=== PATIENT | male | born 1935 | race Caucasian/White ===

== ENCOUNTER 2016-10-31 10:08 | Inpatient (IN) | payer OTHER, MEDICAID ==
[2016-10-31] MEDS ORDERED: NS 1,000 ML IV ONE ×2 (10:22→13:00)
[2016-10-31 10:42] LABS: % IMMATURE GRANULYOCYTES 0.3 % (0.0-1.1); ABSOLUTE IMMATURE GRANULOCYTES 0.03 10^3/uL (0.00-0.10); ADD DIFF? NO; ADD MORPH? NO; ADD SCAN? NO; ATYPICAL LYMPHOCYTE FLAG 0 (0-99); FRAGMENT RBC FLAG 0 (0-99); HEMATOCRIT 40.5 % (40.0-51.0); HEMOGLOBIN 12.6 g/dL (13.7-17.5); LEFT SHIFT FLG 10 (0-99); LIPEMIA HEMOLYSIS FLAG 80 (0-99); MEAN CELL HEMOGLOBIN CONCENTR. 31.1 g/dL (32.4-36.7); MEAN PLATELET VOLUME 9.6 fL (8.7-11.7); PLATELET CLUMPS FLAG 0 (0-99); PLATELET COUNT 229 10^3/uL (150-400); RED BLOOD CELL COUNT 5.47 10^6/uL (4.40-6.38); RED CELL DISTRIBUTION WIDTH 15.7 % (11.5-15.2)
[2016-10-31] MEDS ORDERED: NS 1,000 ML BAG *FOR SEPSIS ORDER SET ONLY IV ONE ×2 (10:47)
--- NOTE | 2016-10-31 10:54 | CPEKG ---
Heart Rate: 112 RR Interval: 536 P-R Interval: 132 QRSD Interval: 138 QT Interval: 364 QTC Interval: 497 P [place]: 25 QRS [place]: 22 T Wave [place]: -25 EKG Severity - ABNORMAL ECG - EKG Impression: SINUS TACHYCARDIA EKG Impression: RIGHT BUNDLE BRANCH BLOCK EKG Impression: PROBABLE INFERIOR INFARCT, AGE INDETERMINATE Electronically Signed By: Aleks Vilchis 31-Oct-2016 15:00:12
[2016-10-31 10:57] LABS: ANION GAP 13 mEq/L (8-16); CARBON DIOXIDE 28 mEq/l (22-31); CHLORIDE 92 mEq/L (97-110); CREATININE 0.9 mg/dL (0.7-1.3); GLOMERULAR FILTRATION RATE > 60; GLUCOSE 233 mg/dL (70-100); POTASSIUM 4.2 mEq/L (3.5-5.2); SODIUM 133 mEq/L (134-144)
--- NOTE | 2016-10-31 10:59 | EDPHY ---
H & P Time Seen by Provider: 10/31/16 10:17 HPI/ROS: HPI Chills, back pain. 81-year-old male by private vehicle with his son. This patient complains of shaking chills and feeling feverish and fatigued, onset last night. He also complains of some back pain which she describes as across his mid to lower back but greater on the left side versus the right side. He also reports he has had nausea with vomiting last night. Describes this as 2 episodes of nonbilious, nonbloody vomiting. His son also reports that he was hypoxic this morning. ROS: Constitutional: As above. Eyes: No discharge. No changes in vision. ENT: No sore throat. No nasal congestion or rhinorrhea. Respiratory: No cough. No shortness of breath. Cardiac: No chest pain, no palpitations. Gastrointestinal: No abdominal pain, no vomiting, no diarrhea. Genitourinary: No hematuria. No dysuria or increased frequency with urination. Musculoskeletal: As above. No neck pain. No myalgias or arthralgias. Skin: No rashes. Neurological: No headache. No focal weakness or altered sensation. Past medical history: Hypertension, confusion, chronic pain, DDD, chronic anemia, CVA in the . He is [id number]. Social history: From [facility] where he lives by himself. His son is present with him. Brandy [employer] vet. Physical Exam: General Appearance: Alert, no distress. This patient is responding to questions appropriately and in full sentences. Need to speak loudly into his left ear. This patient appears well-hydrated and well-nourished. Eyes: Pupils equal and round no pallor or injection. No lid edema, erythema or injection. ENT, Mouth: Mucous membranes are moist. The pharyngeal tissues are unremarkable. No edema or swelling. No asymmetry suggestive of abscess. No erythema or exudates. Respiratory: There are no retractions, lungs are clear to auscultation with good air movement bilaterally. Cardiovascular: Regular rate and rhythm. Tachycardia. No murmur appreciated. Gastrointestinal: Abdomen is soft and nontender, obese habitus, no masses, bowel sounds normal. No focal tenderness at McBurney's point. No Raygoza sign. Neurological: Motor sensory function is grossly intact. Cranial nerves are normal. Gait is normal. Skin: Warm and dry, no rashes. Musculoskeletal: Neck is supple and nontender. No pain on flexion of the neck. He has got some left-sided CVA tenderness. No midline thoracic, lumbar, sacral tenderness on palpation. Extremities are symmetrical. All joints range without pain or impingement. Psychiatric: No agitation. No depression. Database: EKG: EKG time is 10:52 a.m.; EKG shows a narrow complex sinus tachycardia with ventricular rate of 112. There is an underlying right bundle branch block. Q- waves noted in the inferior leads. Interpreted by me. Compared to prior EKG from August of 2015 which also shows a right bundle branch block and mild tachycardia at 1:03 a.m.. Imaging: Chest x-ray PA and lateral; the cardiac mediastinal silhouette is unremarkable. Significant for patchy right lung field infiltrates. Diffuse airway disease. Interpreted by me. Procedures: Emergency department course: IV placed. He was placed on a radius corner machine operator. He was initially started on 1 L of IV normal saline. Vital signs were reviewed. Blood pressure is normal. He is tachycardic in the 120s. He was afebrile in triage. 10:55 a.m., initial venous lactate is 5.4. Severe sepsis and septic shock declared at this time. Appropriate protocol initiated. Patient currently is not hypotensive. Central line not indicated at this time. 11:05 a.m., chest x-ray reviewed. Patient will be started on IV azithromycin and IV ceftriaxone for treatment of community-acquired pneumonia with sepsis. Results of chest x-ray an presumed diagnosis discussed with the patient and his son. Need for admission discussed. 11:20 a.m., patient receiving his antibiotics now. He is receiving his IV fluids. Blood pressure is currently 85 over 53. Tachycardia is decreasing with a heart rate of 104 currently. Mental status has not changed. 11:35 a.m., urinalysis dip looks unremarkable. Spoke with on-call hospitalist. Case discussed in detail. Patient will be admitted to the step-down unit under the care of Dr. Vallejo. 11:45 a.m., patient is had 1 and 0.5 L of IV normal saline. Plan will be to repeat venous lactate after 2 L and assess for central line placement at that time. 1:05 p.m., hospitalist currently at the bedside. I discussed placing a central line with Dr. Vallejo. We will hold this for now. Patient will receive the full 30 mL/kilogram IV fluid bolus and then be reassessed for line placement. 1:20 p.m., discussed central line placement with Dr. Vallejo. He is going to order a stat PICC line. The patient is on his 3rd L of IV normal saline. Pressors can be administered through the PICC line if needed. I feel this is reasonable. The patient's remaining emergency department course under my care has been uneventful. He was admitted to the ICU in guarded but improved condition. Differential Diagnosis: The differential diagnosis on this patient includes but is not limited to urosepsis, septic shock, pneumonia. This represents a partial list of diagnoses considered. These considerations are based on history, physical exam , past history, reassessment and diagnostic testing. Smoking Status: Never smoked Constitutional: Initial Vital Signs Temperature (C) 36.8 C 10/31/16 10:24 Heart Rate 127 H 10/31/16 10:24 Respiratory Rate 20 10/31/16 10:24 Blood Pressure 113/63 10/31/16 10:24 O2 Sat (%) 91 L 10/31/16 10:24 O2 Delivery Mode Nasal Cannula O2 (L/minute) 3 Allergies/Adverse Reactions: No Known Allergies Allergy (Unverified 05/27/15 02:46) Home Medications: Medication Instructions Recorded Cholecalciferol Vit D3 [Vitamin D3 2,000 units PO DAILY 05/28/15 2000 units] Docusate Sodium [Colace 100 MG (*)] 100 mg PO BID 05/28/15 Magnesium Hydroxide [Milk of 30 ml PO DAILY PRN 05/28/15 Magnesia (*)] Acetaminophen [Tylenol ES 500 mg 1,000 mg PO Q8 #0 tab 05/30/15 (*)] Lisinopril [PRINIVIL] 10 mg PO DAILY #0 tablet 05/30/15 Bisacodyl [Dulcolax] 10 mg RC DAILY PRN 08/04/15 Gabapentin [Neurontin] 600 mg PO BID 08/04/15 LORazepam [Ativan (*)] 0.25 mg PO BID 08/04/15 LORazepam [Ativan (*)] 0.25 mg PO DAILY PRN 08/04/15 Ondansetron Odt [Zofran Odt 4 mg 4 mg PO BID PRN 08/04/15 (*)] Polyethylene Glycol 3350 [Miralax 17 gm PO DAILY 08/04/15 17 gm (*)] Sennosides [Senokot] 8.6 mg PO BID 08/04/15 Tears/Hypromellose [Natural 1 drop EACHEYE Q4 PRN 08/04/15 Balance] Venlafaxine HCl [Venlafaxine 75MG 75 mg PO BID #0 tab 08/07/15 (*)] oxyCODONE IR [Oxycodone Ir (*)] 5 mg PO BID@10,18 #0 tab 08/07/15 Ciprofloxacin HCl [Ciprofloxacin] 500 mg PO BID #14 tab 07/03/16 Medical Decision Making Critical Care Time: I spent a total of 47 minutes of critical care time in obtaining history, performing a physical exam, bedside monitoring of interventions, collecting and interpreting tests and discussion with consultants but not including time spent performing procedures. - Data Points Laboratory Results: Laboratory Results 10/31/16 10:29 10/31/16 10:29 10/31/16 10/31/16 10/31/16 11:05 10:29 10:29 WBC RBC Hgb Hct MCV MCH MCHC RDW Plt Count MPV Neut % (Auto) Lymph % (Auto) Irwin % (Auto) Eos % (Auto) Baso % (Auto) Nucleat RBC Rel Count Absolute Neuts (auto) Absolute Lymphs (auto) Absolute Monos (auto) Absolute Eos (auto) Absolute Basos (auto) Absolute Nucleated RBC Immature Gran % Immature Gran # PT 14.1 SEC SEC (12.0-15.0) INR 1.10 (0.83-1.16) APTT 32.4 SEC SEC (23.0-38.0) VBG Lactic Acid Sodium 133 mEq/L L mEq/L (134-144) Potassium 4.2 mEq/L mEq/L (3.5-5.2) Chloride 92 mEq/L L mEq/L (97-110) Carbon Dioxide 28 mEq/l mEq/l (22-31) Anion Gap 13 mEq/L mEq/L (8-16) BUN 10 mg/dL mg/dL (7-23) Creatinine 0.9 mg/dL mg/dL (0.7-1.3) Estimated GFR > 60 Glucose 233 mg/dL H mg/dL (70-100) Calcium 9.0 mg/dL mg/dL (8.5-10.4) Urine Color YELLOW Urine Appearance CLEAR Urine pH 8.0 H (5.0-7.5) Ur Specific Rake 1.010 (1.002-1.030) Urine Protein NEGATIVE (NEGATIVE) Urine Ketones NEGATIVE (NEGATIVE) Urine Blood NEGATIVE (NEGATIVE) Urine Nitrate NEGATIVE (NEGATIVE) Urine Bilirubin NEGATIVE (NEGATIVE) Urine Urobilinogen NEGATIVE EU EU (0.2-1.0) Ur Leukocyte Esterase NEGATIVE (NEGATIVE) Urine RBC 3-5 /hpf H /hpf (0-3) Urine WBC 1-3 /hpf /hpf (0-3) Ur Epithelial Cells TRACE /lpf /lpf (NONE-1+) Ur Culture Indicated? NOT INDICATED (NI) Urine Glucose NEGATIVE (NEGATIVE) 10/31/16 10/31/16 10:29 10:29 WBC 10.80 10^3/uL H 10^3/uL (3.80-9.50) RBC 5.47 10^6/uL 10^6/uL (4.40-6.38) Hgb 12.6 g/dL L g/dL (13.7-17.5) Hct 40.5 % % (40.0-51.0) MCV 74.0 fL L fL (81.5-99.8) MCH 23.0 pg L pg (27.9-34.1) MCHC 31.1 g/dL L g/dL (32.4-36.7) RDW 15.7 % H % (11.5-15.2) Plt Count 229 10^3/uL 10^3/uL (150-400) MPV 9.6 fL fL (8.7-11.7) Neut % (Auto) 93.0 % H % (39.3-74.2) Lymph % (Auto) 3.1 % L % (15.0-45.0) Irwin % (Auto) 3.1 % L % (4.5-13.0) Eos % (Auto) 0.3 % L % (0.6-7.6) Baso % (Auto) 0.2 % L % (0.3-1.7) Nucleat RBC Rel Count 0.0 % % (0.0-0.2) Absolute Neuts (auto) 10.04 10^3/uL H 10^3/uL (1.70-6.50) Absolute Lymphs (auto) 0.34 10^3/uL L 10^3/uL (1.00-3.00) Absolute Monos (auto) 0.34 10^3/uL 10^3/uL (0.30-0.80) Absolute Eos (auto) 0.03 10^3/uL 10^3/uL (0.03-0.40) Absolute Basos (auto) 0.02 10^3/uL 10^3/uL (0.02-0.10) Absolute Nucleated RBC 0.00 10^3/uL 10^3/uL (0-0.01) Immature Gran % 0.3 % % (0.0-1.1) Immature Gran # 0.03 10^3/uL 10^3/uL (0.00-0.10) PT INR APTT VBG Lactic Acid 5.4 mmol/L H mmol/L (0.7-2.1) Sodium Potassium Chloride Carbon Dioxide Anion Gap BUN Creatinine Estimated GFR Glucose Calcium Urine Color Urine Appearance Urine pH Ur Specific Rake Urine Protein Urine Ketones Urine Blood Urine Nitrate Urine Bilirubin Urine Urobilinogen Ur Leukocyte Esterase Urine RBC Urine WBC Ur Epithelial Cells Ur Culture Indicated? Urine Glucose Medications Given: Discontinued Medications Sodium Chloride (Ns) 1,000 mls @ 0 mls/hr IV ONCE ONE PRN Reason: Wide Open Stop: 10/31/16 10:23 Last Admin: 10/31/16 10:38 Dose: 1,000 mls Azithromycin 500 mg/ Dextrose 255 mls @ 255 mls/hr IV EDNOW ONE PRN Reason: Protocol Stop: 10/31/16 12:04 Last Admin: 10/31/16 12:00 Dose: 255 mls Ceftriaxone Sodium/Dextrose (Rocephin 1 Gm (Premix)) 50 mls @ 100 mls/hr IV EDNOW ONE PRN Reason: Protocol Stop: 10/31/16 11:34 Last Admin: 10/31/16 11:21 Dose: 50 mls Ceftriaxone Sodium/Dextrose (Rocephin 1 Gm (Premix)) 50 mls @ 100 mls/hr IV EDNOW ONE PRN Reason: Protocol Stop: 10/31/16 11:52 Last Admin: 10/31/16 11:25 Dose: 50 mls Sodium Chloride (Ns *For Sepsis Order Set Only*) 2,722 ml 30 ml/kg (2722 ml) IV EDNOW ONE Stop: 10/31/16 10:48 Last Admin: 10/31/16 12:52 Dose: 2,722 ml Sodium Chloride (Ns *For Sepsis Order Set Only*) 2,722 ml 30 ml/kg (2722 ml) IV ONCE ONE Stop: 10/31/16 10:48 Last Admin: 10/31/16 11:22 Dose: 2,722 ml Departure - Departure Disposition: [facility] Inpatient Acute Clinical Impression: Pneumonia, Sepsis
[2016-10-31 11:01] LABS: APTT 32.4 SEC (23.0-38.0); INR 1.1 (0.83-1.16); PROTIME(PATIENT) 14.1 SEC (12.0-15.0)
[2016-10-31] MEDS ORDERED: AZITHROMYCIN IV 500 MG in D5W 250 ML IV ONE (11:05)
[2016-10-31 11:15] LABS: COLOR YELLOW; LEUKOCYTE ESTERASE,URINE NEGATIVE (NEGATIVE); NITRITE,URINE NEGATIVE (NEGATIVE)
[2016-10-31] MEDS ORDERED: ALTEPLASE 2 MG VIAL IVP PRN (13:23)
[2016-10-31] MEDS ORDERED: PROMETHAZINE HCL 25 MG/ML INJ IVP PRN (13:28)
[2016-10-31] MEDS ORDERED: ONDANSETRON 4 MG/2 ML VIAL IVP PRN (13:28)
[2016-10-31] MEDS ORDERED: D50W 25 GM/50 ML SYR IVP PRN (13:31)
--- NOTE | 2016-10-31 13:52 | GHP ---
DATE OF ADMISSION: 10/31/2016 CHIEF COMPLAINT: Chills and back pain. HISTORY OF PRESENT ILLNESS: This is an 81-year-old male who resides at [facility]. He has been feeling ill for the past 2 days with low energy. This morning, his PA went to check o n him when he was noted to be hypoxemic and lethargic. The patient had an episode of vomiting last night. It was described as nonbloody. He denies any chest pain. He does have some shortness of br eath. He has had no appetite over the past few days. He reports a nonproductive cough. The patien t does have a history of multiple bouts of pneumonia. PAST MEDICAL HISTORY: Hypertension, chronic back pain, chronic anemia, stroke, hearing loss, pre-di abetes. PAST SURGICAL HISTORY: Bilateral knee surgery. Back surgery. Right rotator cuff surgery. HOME MEDICATIONS: Reviewed. Refer to [employer] for details. ALLERGIES: No known drug allergies. SOCIAL HISTORY: The patient resides at [facility]. He denies any alcohol, tobacco , or illicit drug use. FAMILY HISTORY: Reviewed and noncontributory. REVIEW OF SYSTEMS: A comprehensive 10-point review of systems was done and was negative except for as mentioned in the HPI. PHYSICAL EXAM: VITAL SIGNS: Blood pressure 86/52, pulse of 97, respiratory rate 16, O2 saturation 97% on 4 L, temperature currently afebrile. GENERAL: No acute distress. HEENT: Head is normoceph alic, atraumatic. Eyes are PERRLA. Sclerae anicteric. Mouth with moist mucous membranes. NECK: Supple. No lymphadenopathy. CARDIOVASCULAR: S1, S2. No JVD. No lower extremity edema. PULMONAR Y: Lungs are clear. Slight decreased breath sounds in bilateral bases. There are no wheezes, rale s, or rhonchi. There is no dullness to percussion. ABDOMEN: Soft, nontender, nondistended. No gu arding or rebound tenderness. Negative Raygoza sign. Normoactive bowel sounds. EXTREMITIES: No cl ubbing or cyanosis. NEURO: Cranial nerves 2-12 grossly intact. No focal motor or sensory deficits . SKIN: Clear. No rashes. EXTREMITIES: Warm to touch. Cap refill less than 2 seconds. DIAGNOSTICS: Chest x-ray, which I visualized and personally interpreted, shows a consolidation in t he right middle lobe and bilateral lower lobes. EKG, which I visualized and personally interpreted, shows sinus tachycardia, rate 112 beats per sonia te with a right bundle branch block. T-wave inversion in 2, 3, and AVF. LABORATORY DATA: WBC is 10.8, hemoglobin 12.6, hematocrit 40.5, platelets 229. INR 1.1. Initial v enous lactic acid was 5.4, repeat was 3.7. Sodium 133, potassium 4.2, chloride 92, BUN 10, creatini ne 0.9, glucose 233. A UA was done; 3-5 RBCs, negative leukocyte esterase, negative nitrate. ASSESSMENT AND PLAN: This is an 81-year-old male presenting with: 1. Severe sepsis with elevated lactate in the setting of:. a. Right middle lobe pneumonia, possible aspiration given the recurrent nature of his pneumonias. b. Mild hyponatremia. c. Stress-induced hyperglycemia. d. History of hypertension. PLAN: 1. Admit to step-down unit. 2. The patient will continue to receive his 30 cc/kg volume resuscitation with repeat lactic acids. If his blood pressure is yet to improve, we will place a central line and start pressors. 3. The patient was started on ceftriaxone and azithromycin, which I will change to Zosyn given the possibility for aspiration. 4. The patient requests to be full code status. /[id number]/MODL
[2016-10-31] MEDS ORDERED: ALBUMIN 5% 500 ML IV ONE (15:08)
[2016-10-31] MEDS: NOREPINEPHRINE BITARTRATE 4 MG in D5W 500 ML IV SCH ×2 (15:28→16:54)
[2016-10-31] MEDS: ERTAPENEM 1 GM in NS 100 ML IV SCH (15:29)
--- NOTE | 2016-10-31 15:37 | GCON ---
PULMONARY/CRITICAL CARE CONSULTATION DATE OF CONSULTATION: 10/31/2017 REFERRING PHYSICIAN: José Miguel Vallejo DO REASON FOR REFERRAL: Evaluation and management of severe sepsis. HISTORY: The patient is an 81-year-old gentleman who lives in assisted living. He was in his usual state of fair health when, 2 days ago, he started to have a feeling of low energy. Yesterday, he had some vomiting, followed by a nonproductive cough. He was seen by his PA who found him to be letharg ic, so he was brought to the hospital. He currently denies pain and does not have a cough now. He munroe s poor appetite. He denies shortness of breath. He complains of some back pain, which is chronic, as well as some left knee pain that he attributes to prior knee replacements, and he reports that the knee pain is at its baseline. PAST MEDICAL HISTORY: 1. Prediabetes. 2. History of CVA. 3. Chronic anemia. 4. Chronic back pain. 5. Hypertension. MEDICATIONS: At the time of admission include Colace, Prinivil, Ativan, MiraLAX, Neurontin, Dulcola x, oxycodone, venlafaxine, and ciprofloxacin. ALLERGIES: None. SOCIAL HISTORY: The patient lives at the [facility]. He does not drink or smoke. FAMILY HISTORY: Unremarkable. REVIEW OF SYSTEMS: A 10-point review of systems adds nothing to the history of present illness. PHYSICAL EXAMINATION: GENERAL: The patient is awake, alert, and in no acute distress. VITAL SIGNS: Blood pressure is 83/44. His heart rate is 90, down from 127. His oxygen saturations are 94% on 3 L. He has been afebrile since hospitalization. HEENT: Normocephalic and atraumatic. No icterus. NECK: No adenopathy. Trachea is midline. CHEST: He has some rales in both bases. CARDIAC: Regular rate and rhythm without murmur. ABDOMEN: Soft, nontender. Bowel sounds are present. EXTREMITIES: No clubbing , cyanosis, or edema. LABORATORY DATA: Chemistry group is remarkable for a sodium of 133, creatinine 0.9, glucose 233. Wh ite blood count is 10.8, hemoglobin is 12.6, and platelet count is 229. Venous lactate is 3.7, down from 5.4. A chest x-ray shows patchy bibasilar infiltrates. ASSESSMENT: 1. Severe sepsis. The patient has an elevated lactate, as well as hypotension and initially had tac hycardia. His white blood count is elevated, but he does not have a fever. The presumed source is pn eumonia, possibly due to aspiration. Urinalysis is negative, arguing against a urinary tract infecti on. The patient was initially started on azithromycin and ceftriaxone in the emergency department bu t has now been changed to ertapenem. The patient remains hypotensive, despite having received over 3 L of fluids. 2. Diabetes with hyperglycemia. 3. History of hypertension. 4. Bilateral bacterial pneumonia. RECOMMENDATIONS: 1. Continue IV fluid resuscitation. He is getting his 4th L of IV fluid but remains hypotensive and a PICC line is being placed. If the patient remains hypotensive after his current fluid bolus is co mpleted, the patient will be given further fluids, norepinephrine, or both, depending on CVP measure d once the PICC line is placed, as well as a NICOM monitored fluid challenge to assess fluid respon siveness. 2. Continue empiric antibiotics. 3. Blood sugars will be followed, and the patient will be placed on sliding scale insulin. /[id number]/MODL
[2016-10-31 15:44] LABS: MIXED VENOUS O2 SATURATION 97 % (65-75)
[2016-10-31] MEDS: guaiFENesin 600 MG TAB.ER PO SCH ×2 (15:48→20:06)
[2016-10-31] MEDS: INSULIN LISPRO 100 UNIT/ML SC SCH (16:40)
[2016-10-31] MEDS: ACETAMINOPHEN 325 MG TAB PO PRN (20:09)
[2016-11-01] MEDS: ACETAMINOPHEN 325 MG TAB PO PRN ×2 (03:51→14:35)
[2016-11-01 04:33] LABS: ALANINE AMINOTRANSFERASE 36 IU/L (21-72); ALBUMIN 3.2 g/dL (3.5-5.0); ALKALINE PHOSPHATASE 84 IU/L (38-126); ANION GAP 7 mEq/L (8-16); ASPARTATE AMINOTRANSFERASE 38 IU/L (17-59); BILIRUBIN,TOTAL 0.6 mg/dL (0.1-1.4); CALCIUM 8.3 mg/dL (8.5-10.4); CARBON DIOXIDE 23 mEq/l (22-31); CHLORIDE 105 mEq/L (97-110); CREATININE 0.8 mg/dL (0.7-1.3); GLOMERULAR FILTRATION RATE > 60; GLUCOSE 160 mg/dL (70-100); POTASSIUM 4.7 mEq/L (3.5-5.2); SODIUM 135 mEq/L (134-144); TOTAL PROTEIN 5.8 g/dL (6.3-8.2)
[2016-11-01 04:37] LABS: % IMMATURE GRANULYOCYTES 0.3 % (0.0-1.1); ABSOLUTE IMMATURE GRANULOCYTES 0.04 10^3/uL (0.00-0.10); ADD DIFF? NO; ADD MORPH? NO; ADD SCAN? NO; ATYPICAL LYMPHOCYTE FLAG 0 (0-99); FRAGMENT RBC FLAG 0 (0-99); HEMATOCRIT 30.9 % (40.0-51.0); HEMOGLOBIN 9.6 g/dL (13.7-17.5); LEFT SHIFT FLG 10 (0-99); LIPEMIA HEMOLYSIS FLAG 80 (0-99); MEAN CELL HEMOGLOBIN 23.2 pg (27.9-34.1); MEAN CELL HEMOGLOBIN CONCENTR. 31.1 g/dL (32.4-36.7); MEAN CELL VOLUME 74.8 fL (81.5-99.8); MEAN PLATELET VOLUME 9.6 fL (8.7-11.7); PLATELET CLUMPS FLAG 30 (0-99); PLATELET COUNT 168 10^3/uL (150-400); RED BLOOD CELL COUNT 4.13 10^6/uL (4.40-6.38); RED CELL DISTRIBUTION WIDTH 16.2 % (11.5-15.2)
[2016-11-01] MEDS: ERTAPENEM 1 GM in NS 100 ML IV SCH (08:50)
[2016-11-01] MEDS: ENOXAPARIN 40 MG/0.4 ML SYR SC SCH (08:50)
[2016-11-01] MEDS: INSULIN LISPRO 100 UNIT/ML SC SCH ×3 (08:51→18:12)
[2016-11-01] MEDS ORDERED: AZITHROMYCIN IV 500 MG in D5W 250 ML IV SCH (09:00)
[2016-11-01] MEDS: guaiFENesin 600 MG TAB.ER PO SCH ×2 (09:08→21:30)
[2016-11-01] MEDS ORDERED: HYPROMELLOSE EACHEYE PRN (09:48)
[2016-11-01] MEDS ORDERED: MAGNESIUM HYDROXIDE 30 ML UDCUP PO PRN (09:48)
[2016-11-01] MEDS ORDERED: POLYETHYLENE GLYCOL 3350 17 GM PKT PO PRN (09:48)
[2016-11-01] MEDS ORDERED: guaiFENesin 600 MG TAB.ER PO PRN (09:48)
[2016-11-01] MEDS ORDERED: oxyCODONE IR 5 MG TAB PO PRN (09:48)
[2016-11-01] MEDS ORDERED: LORazepam 0.5 MG TAB PO PRN (09:48)
[2016-11-01] MEDS ORDERED: BISACODYL 10 MG SUPP PR PRN (09:48)
[2016-11-01] MEDS ORDERED: ACETAMINOPHEN 500 MG TAB PO PRN ×2 (09:48→10:09)
[2016-11-01] MEDS ORDERED: TEARS EACHEYE PRN (09:48)
[2016-11-01] MEDS ORDERED: NON-FORMULARY NEW DRUG (Omeprazole [Prilosec 20 Mg] 20 MG) PO SCH (10:00)
[2016-11-01] MEDS ORDERED: NON-FORMULARY NEW DRUG (Lisinopril [Zestril 30 Mg] 30 MG) PO SCH (10:00)
[2016-11-01] MEDS ORDERED: TEARS/DEXTRAN 70/HYPROMELLOSE 15 ML OPHT.BTL EACHEYE PRN (11:06)
[2016-11-01] MEDS: oxyCODONE IR 5 MG TAB PO PRN (11:22)
[2016-11-01] MEDS: VENLAFAXINE XR 75 MG CAP PO SCH (11:22)
[2016-11-01] MEDS: VENLAFAXINE XR 150 MG CAP PO SCH (11:22)
[2016-11-01] MEDS: metFORMIN HCL 850 MG TAB PO SCH (12:09)
--- NOTE | 2016-11-01 15:20 | HOSPPROG ---
Hospitalist Progress Note Assessment/Plan: * Community-acquired pneumonia * continue ceftriaxone and azithromycin * severe sepsis * off pressors * lactate has normalized * anemia * chronic * history of hypertension * can restart medications tomorrow * disposition * possible home tomorrow. Will see what PT says Subjective: feels a lot better. No new complaints. Denies cough. No dizziness. No chest pain. Objective: Vital Signs Temp Pulse Resp BP Pulse Ox 36.9 C 72 14 138/59 H 98 11/01/16 12:00 11/01/16 12:00 11/01/16 12:00 11/01/16 12:00 11/01/16 12:00 Laboratory Results 11/01/16 04:00 11/01/16 04:00 10/31/16 11/01/16 11/02/16 05:59 05:59 05:59 Intake Total 6559 Output Total 3450 1000 Balance 3109 -1000 PT 14.1 SEC (12.0-15.0) 10/31/16 10:29 INR 1.10 (0.83-1.16) 10/31/16 10:29 - Physical Exam Constitutional: no apparent distress, appears nourished, not in pain Eyes: anicteric sclera, EOMI Ears, Nose, Mouth, Throat: moist mucous membranes, ears appear normal, no oral mucosal ulcers, No hearing normal Cardiovascular: regular rate and rhythym, no murmur, rub, or gallop Respiratory: no respiratory distress, no rales or rhonchi, clear to auscultation Gastrointestinal: normoactive bowel sounds, soft, non-tender abdomen, no palpable masses Skin: warm Neurologic: AAOx3 Psychiatric: interacting appropriately, not anxious, not encephalopathic, thought process linear ICD10 Worksheet Patient Problems: Problems Problem Status Onset Pneumonia Acute Sepsis Acute Acute encephalopathy Acute Hypoxemia requiring supplemental oxygen Acute Pneumonia Acute Weakness of both lower extremities Acute
[2016-11-01] MEDS ORDERED: GABAPENTIN 800 MG PO SCH (16:00)
[2016-11-01] MEDS ORDERED: OXYCODONE HCL 10 MG PO SCH (16:00)
[2016-11-01] MEDS: GABAPENTIN 100 MG CAP PO SCH ×2 (16:31→21:30)
[2016-11-01] MEDS: GABAPENTIN 400 MG CAP PO SCH ×2 (16:32→21:30)
[2016-11-01] MEDS: oxyCODONE IR 5 MG TAB PO SCH ×2 (16:33→21:30)
[2016-11-01] MEDS: SENNOSIDES/DOCUSATE SODIUM TAB PO SCH (21:30)
[2016-11-01] MEDS: TAMSULOSIN HCL 0.4 MG CAP PO SCH (21:30)
[2016-11-01] MEDS: DOCUSATE SODIUM 100 MG CAP PO SCH (21:31)
[2016-11-02 06:36] LABS: % IMMATURE GRANULYOCYTES 0.7 % (0.0-1.1); ABSOLUTE IMMATURE GRANULOCYTES 0.05 10^3/uL (0.00-0.10); ADD DIFF? NO; ADD MORPH? NO; ADD SCAN? NO; ATYPICAL LYMPHOCYTE FLAG 0 (0-99); FRAGMENT RBC FLAG 0 (0-99); HEMATOCRIT 33.1 % (40.0-51.0); LEFT SHIFT FLG 0 (0-99); LIPEMIA HEMOLYSIS FLAG 80 (0-99); MEAN CELL HEMOGLOBIN 22.3 pg (27.9-34.1); MEAN CELL HEMOGLOBIN CONCENTR. 30.2 g/dL (32.4-36.7); MEAN CELL VOLUME 73.7 fL (81.5-99.8); MEAN PLATELET VOLUME 10.2 fL (8.7-11.7); PLATELET CLUMPS FLAG 20 (0-99); PLATELET COUNT 194 10^3/uL (150-400); RED BLOOD CELL COUNT 4.49 10^6/uL (4.40-6.38); RED CELL DISTRIBUTION WIDTH 16.3 % (11.5-15.2)
[2016-11-02 06:43] LABS: ALANINE AMINOTRANSFERASE 39 IU/L (21-72); ALBUMIN 3.6 g/dL (3.5-5.0); ALKALINE PHOSPHATASE 94 IU/L (38-126); ANION GAP 8 mEq/L (8-16); ASPARTATE AMINOTRANSFERASE 37 IU/L (17-59); BILIRUBIN,TOTAL 0.6 mg/dL (0.1-1.4); CARBON DIOXIDE 26 mEq/l (22-31); CHLORIDE 103 mEq/L (97-110); CREATININE 0.7 mg/dL (0.7-1.3); GLOMERULAR FILTRATION RATE > 60; GLUCOSE 154 mg/dL (70-100); POTASSIUM 4.8 mEq/L (3.5-5.2); SODIUM 137 mEq/L (134-144); TOTAL PROTEIN 6.6 g/dL (6.3-8.2)
[2016-11-02] MEDS: INSULIN LISPRO 100 UNIT/ML SC SCH ×3 (08:45→17:55)
[2016-11-02] MEDS: ENOXAPARIN 40 MG/0.4 ML SYR SC SCH (08:46)
[2016-11-02] MEDS: ERTAPENEM 1 GM in NS 100 ML IV SCH (08:51)
[2016-11-02] MEDS: VENLAFAXINE XR 75 MG CAP PO SCH (08:52)
[2016-11-02] MEDS: guaiFENesin 600 MG TAB.ER PO SCH ×2 (08:52→20:56)
[2016-11-02] MEDS: PANTOPRAZOLE SODIUM 40 MG TAB PO SCH (08:53)
[2016-11-02] MEDS: VENLAFAXINE XR 150 MG CAP PO SCH (08:53)
[2016-11-02] MEDS: AZITHROMYCIN 250 MG TAB PO SCH (08:53)
[2016-11-02] MEDS: LISINOPRIL 20 MG TAB PO SCH (08:53)
[2016-11-02] MEDS: GABAPENTIN 100 MG CAP PO SCH ×3 (08:54→20:56)
[2016-11-02] MEDS: oxyCODONE IR 5 MG TAB PO SCH ×3 (08:54→20:58)
[2016-11-02] MEDS: SENNOSIDES/DOCUSATE SODIUM TAB PO SCH ×2 (08:54→20:57)
[2016-11-02] MEDS ORDERED: KETOROLAC 15 MG/1 ML SDV ONE (09:20)
[2016-11-02 11:22] LABS: % SATURATION 7 % (20-55); TOTAL IRON BINDING CAPACITY 283 ug/dL (260-490)
[2016-11-02 11:50] LABS: FERRITIN - BCH 60.9 ng/mL (17.9-464.0)
[2016-11-02] MEDS: MAGNESIUM HYDROXIDE 30 ML UDCUP PO SCH (14:38)
[2016-11-02] MEDS: GABAPENTIN 400 MG CAP PO SCH ×3 (14:38→20:54)
[2016-11-02] MEDS: metFORMIN HCL 850 MG TAB PO SCH (15:47)
--- NOTE | 2016-11-02 18:16 | HOSPPROG ---
Hospitalist Progress Note Assessment/Plan: * Community-acquired pneumonia vs aspiration * continue invanz and azithromycin * severe sepsis * off pressors * lactate has normalized * anemia * chronic * history of hypertension * can restart medications tomorrow * disposition * needs snf. dc tomorrow Subjective: conts to improve. no new complaints Objective: Vital Signs Temp Pulse Resp BP Pulse Ox 36.9 C 82 22 H 159/99 H 95 11/02/16 15:22 11/02/16 15:22 11/02/16 15:22 11/02/16 15:22 11/02/16 15:22 Laboratory Results 11/02/16 05:45 11/02/16 05:45 11/01/16 11/02/16 11/03/16 05:59 05:59 05:59 Intake Total 6559 1150 Output Total 3450 2000 250 Balance 3109 -850 -250 PT 14.1 SEC (12.0-15.0) 10/31/16 10:29 INR 1.10 (0.83-1.16) 10/31/16 10:29 - Physical Exam Constitutional: no apparent distress, appears nourished, not in pain Eyes: anicteric sclera, EOMI Ears, Nose, Mouth, Throat: moist mucous membranes, ears appear normal, no oral mucosal ulcers Cardiovascular: regular rate and rhythym, no murmur, rub, or gallop Respiratory: no respiratory distress, no rales or rhonchi, clear to auscultation Gastrointestinal: normoactive bowel sounds, soft, non-tender abdomen, no palpable masses Neurologic: AAOx3 Psychiatric: interacting appropriately, not anxious, not encephalopathic, thought process linear ICD10 Worksheet Patient Problems: Problems Problem Status Onset Pneumonia Acute Sepsis Acute Acute encephalopathy Acute Hypoxemia requiring supplemental oxygen Acute Pneumonia Acute Weakness of both lower extremities Acute
[2016-11-02] MEDS: DOCUSATE SODIUM 100 MG CAP PO SCH (20:59)
[2016-11-02] MEDS: TAMSULOSIN HCL 0.4 MG CAP PO SCH (20:59)
[2016-11-03] MEDS: oxyCODONE IR 5 MG TAB PO PRN (03:34)
[2016-11-03 03:54] LABS: % IMMATURE GRANULYOCYTES 0.8 % (0.0-1.1); ABSOLUTE IMMATURE GRANULOCYTES 0.05 10^3/uL (0.00-0.10); ADD DIFF? NO; ADD MORPH? NO; ADD SCAN? NO; ATYPICAL LYMPHOCYTE FLAG 0 (0-99); FRAGMENT RBC FLAG 0 (0-99); HEMATOCRIT 34.2 % (40.0-51.0); HEMOGLOBIN 10.5 g/dL (13.7-17.5); LEFT SHIFT FLG 0 (0-99); LIPEMIA HEMOLYSIS FLAG 80 (0-99); MEAN CELL HEMOGLOBIN CONCENTR. 30.7 g/dL (32.4-36.7); MEAN CELL VOLUME 74.8 fL (81.5-99.8); MEAN PLATELET VOLUME 9.3 fL (8.7-11.7); PLATELET CLUMPS FLAG 0 (0-99); PLATELET COUNT 188 10^3/uL (150-400); RED BLOOD CELL COUNT 4.57 10^6/uL (4.40-6.38); RED CELL DISTRIBUTION WIDTH 16.3 % (11.5-15.2)
[2016-11-03 04:14] LABS: ALANINE AMINOTRANSFERASE 39 IU/L (21-72); ALBUMIN 3.6 g/dL (3.5-5.0); ALKALINE PHOSPHATASE 89 IU/L (38-126); ANION GAP 9 mEq/L (8-16); ASPARTATE AMINOTRANSFERASE 28 IU/L (17-59); BILIRUBIN,TOTAL 0.6 mg/dL (0.1-1.4); CALCIUM 9.2 mg/dL (8.5-10.4); CARBON DIOXIDE 25 mEq/l (22-31); CHLORIDE 101 mEq/L (97-110); CREATININE 0.7 mg/dL (0.7-1.3); GLOMERULAR FILTRATION RATE > 60; GLUCOSE 145 mg/dL (70-100); POTASSIUM 4.3 mEq/L (3.5-5.2); SODIUM 135 mEq/L (134-144); TOTAL PROTEIN 6.6 g/dL (6.3-8.2)
[2016-11-03] MEDS: LISINOPRIL 20 MG TAB PO SCH (08:57)
[2016-11-03] MEDS: GABAPENTIN 400 MG CAP PO SCH ×3 (08:58→21:33)
[2016-11-03] MEDS: guaiFENesin 600 MG TAB.ER PO SCH ×2 (08:58→21:31)
[2016-11-03] MEDS: GABAPENTIN 100 MG CAP PO SCH ×3 (08:59→21:33)
[2016-11-03] MEDS: oxyCODONE IR 5 MG TAB PO SCH ×3 (08:59→21:32)
[2016-11-03] MEDS: PANTOPRAZOLE SODIUM 40 MG TAB PO SCH (08:59)
[2016-11-03] MEDS: VENLAFAXINE XR 150 MG CAP PO SCH (08:59)
[2016-11-03] MEDS: SENNOSIDES/DOCUSATE SODIUM TAB PO SCH ×2 (09:00→21:32)
[2016-11-03] MEDS: AZITHROMYCIN 250 MG TAB PO SCH (09:00)
[2016-11-03] MEDS: VENLAFAXINE XR 75 MG CAP PO SCH (09:01)
[2016-11-03] MEDS: metFORMIN HCL 850 MG TAB PO SCH (09:01)
[2016-11-03] MEDS: ENOXAPARIN 40 MG/0.4 ML SYR SC SCH (09:05)
[2016-11-03] MEDS: ERTAPENEM 1 GM in NS 100 ML IV SCH (09:06)
[2016-11-03] MEDS: MAGNESIUM HYDROXIDE 30 ML UDCUP PO SCH (09:06)
[2016-11-03] MEDS: INSULIN LISPRO 100 UNIT/ML SC SCH ×3 (09:14→17:50)
--- NOTE | 2016-11-03 12:15 | HOSPPROG ---
Hospitalist Progress Note Assessment/Plan: * Community-acquired pneumonia vs aspiration * changed to oral Augmentin * severe sepsis * off pressors * lactate has normalized * anemia * is iron deficient * consider outpatient workup * history of hypertension * restart meds * disposition * the go back to assisted living tomorrow Subjective: no new complaints. Feeling pretty good Objective: Vital Signs Temp Pulse Resp BP Pulse Ox 36.9 C 87 16 152/86 H 92 11/03/16 07:08 11/03/16 07:08 11/03/16 07:08 11/03/16 08:57 11/03/16 09:05 Laboratory Results 11/03/16 03:45 11/03/16 03:45 11/02/16 11/03/16 11/04/16 05:59 05:59 05:59 Intake Total 1150 300 Output Total 2000 470 550 Balance -850 -170 -550 PT 14.1 SEC (12.0-15.0) 10/31/16 10:29 INR 1.10 (0.83-1.16) 10/31/16 10:29 - Physical Exam Constitutional: no apparent distress, appears nourished, not in pain Eyes: anicteric sclera, EOMI Ears, Nose, Mouth, Throat: moist mucous membranes, hearing normal Cardiovascular: regular rate and rhythym, no murmur, rub, or gallop Respiratory: no respiratory distress, no rales or rhonchi, clear to auscultation Gastrointestinal: normoactive bowel sounds, soft, non-tender abdomen, no palpable masses Skin: warm Neurologic: AAOx3 Psychiatric: interacting appropriately, not anxious, not encephalopathic, thought process linear ICD10 Worksheet Patient Problems: Problems Problem Status Onset Pneumonia Acute Sepsis Acute Acute encephalopathy Acute Hypoxemia requiring supplemental oxygen Acute Pneumonia Acute Weakness of both lower extremities Acute
--- NOTE | 2016-11-03 12:17 | PDIAF ---
- Diagnosis Diagnosis: pna, sepsis Code Status: Full Code - Medication Management Discharge Medications: Medications to Continue on Transfer Docusate Sodium [Colace 100 MG (*)] 100 mg PO HS 05/28/15 [Last Taken 08/04/15 09:00] Magnesium Hydroxide [Milk of Magnesia (*)] 30 ml PO DAILY 05/28/15 [Last Taken 10/31/16] Bisacodyl [Dulcolax] 10 mg RC DAILY PRN 08/04/15 [Last Taken Unknown] LORazepam [Ativan (*)] 0.25 mg PO TID PRN 08/04/15 [Last Taken 08/04/15 09:00] Ondansetron Odt [Zofran Odt 4 mg (*)] 8 mg PO Q6H PRN 08/04/15 [Last Taken Unknown] Polyethylene Glycol 3350 [Miralax 17 gm (*)] 17 gm PO DAILY PRN 08/04/15 [Last Taken 08/04/15] Tears/Hypromellose [Natural Balance] 1 drop EACHEYE Q4 PRN 08/04/15 [Last Taken Unknown] Acetaminophen [Tylenol ES 500 mg (*)] 1,000 mg PO TID PRN 10/31/16 [Last Taken Unknown] Ergocalciferol [Vitamin D2 (*)] 50,000 unit PO Q30D 10/31/16 [Last Taken ] GABAPENTIN 800 mg PO TID 10/31/16 [Last Taken 10/31/16] Gabapentin 200 mg PO TID 10/31/16 [Last Taken 10/31/16] Lisinopril [Zestril 30 mg] 30 mg PO DAILY 10/31/16 [Last Taken 10/31/16] Magnesium Hydroxide [Milk of Magnesia] 30 ml PO DAILY PRN 10/31/16 [Last Taken Unknown] Omeprazole [Prilosec 20 mg] 20 mg PO DAILY 10/31/16 [Last Taken 10/31/16] Oxycodone HCl [OXYCODONE HCL] 10 mg PO TID 10/31/16 [Last Taken 10/31/16] Sennosides/Docusate Sodium [Senna-Docusate Sodium Tablet] 1 each PO BID [Last Taken Unknown] Tamsulosin HCl 0.4 mg PO HS 10/31/16 [Last Taken Unknown] Venlafaxine HCl [Venlafaxine HCl ER] 75 mg PO DAILY 10/31/16 [Last Taken ] Venlafaxine HCl [Venlafaxine HCl ER] 150 mg PO DAILY 10/31/16 [Last Taken ] guaiFENesin [Mucinex 600 MG (*)] 600 mg PO BID PRN 10/31/16 [Last Taken Unknown] metFORMIN HCL [Glucophage 850 mg (*)] 850 mg PO DAILY 10/31/16 [Last Taken 10/31] oxyCODONE IR [Oxycodone Ir (*)] 5 mg PO DAILY PRN 10/31/16 [Last Taken Unknown] traZODone [traZODone 150MG (*)] 150 mg PO HS 10/31/16 [Last Taken Unknown] Amoxicillin/Clavulanate Pot [Augmentin 875 MG TAB (*)] 875 mg PO BID #10 tab 12/17 [Last Taken Unknown] Discharge Medications: Refer to the Discharge Home Medication list for PRN reason. - Orders Services needed: Home Care, Physical Therapy, Occupational Therapy Home Care Face to Face: I certify that this patient was under my care and that I had the required [id number] encounter meeting the encounter requirements on the discharge day. My findings support the fact that the patient is homebound as defined in CMS Chapter 7 Medicare Benefits Manual 30.1.1, The condition of the patient is such that there exists a normal inability to leave home and consequently, leaving home would require a considerable and taxing effort. Diet Texture: Dysphagia 3 - Advanced - Moist, Bite-Size, Thin Liquids, Meds Whole in Puree - Follow Up Care Current Providers and Referrals: Patient,NotPresent [Unknown] - As per Instructions
[2016-11-03] MEDS: TAMSULOSIN HCL 0.4 MG CAP PO SCH (21:31)
[2016-11-03] MEDS: AMOXICILLIN/CLAVULANATE POT 875/125 MG TAB PO SCH (21:33)
[2016-11-03] MEDS: DOCUSATE SODIUM 100 MG CAP PO SCH (21:33)
[2016-11-04 05:26] LABS: % IMMATURE GRANULYOCYTES 0.6 % (0.0-1.1); ABSOLUTE IMMATURE GRANULOCYTES 0.04 10^3/uL (0.00-0.10); ADD DIFF? NO; ADD MORPH? NO; ADD SCAN? NO; ATYPICAL LYMPHOCYTE FLAG 0 (0-99); FRAGMENT RBC FLAG 0 (0-99); HEMATOCRIT 34.5 % (40.0-51.0); HEMOGLOBIN 10.7 g/dL (13.7-17.5); LEFT SHIFT FLG 0 (0-99); LIPEMIA HEMOLYSIS FLAG 80 (0-99); MEAN CELL HEMOGLOBIN 23.1 pg (27.9-34.1); MEAN CELL VOLUME 74.4 fL (81.5-99.8); MEAN PLATELET VOLUME 9.7 fL (8.7-11.7); PLATELET CLUMPS FLAG 10 (0-99); PLATELET COUNT 219 10^3/uL (150-400); RED BLOOD CELL COUNT 4.64 10^6/uL (4.40-6.38); RED CELL DISTRIBUTION WIDTH 16.4 % (11.5-15.2)
[2016-11-04 05:51] LABS: ALANINE AMINOTRANSFERASE 33 IU/L (21-72); ALBUMIN 3.6 g/dL (3.5-5.0); ALKALINE PHOSPHATASE 85 IU/L (38-126); ANION GAP 11 mEq/L (8-16); ASPARTATE AMINOTRANSFERASE 25 IU/L (17-59); BILIRUBIN,TOTAL 0.7 mg/dL (0.1-1.4); CALCIUM 9.1 mg/dL (8.5-10.4); CARBON DIOXIDE 26 mEq/l (22-31); CHLORIDE 100 mEq/L (97-110); CREATININE 0.7 mg/dL (0.7-1.3); GLOMERULAR FILTRATION RATE > 60; GLUCOSE 133 mg/dL (70-100); POTASSIUM 4.6 mEq/L (3.5-5.2); SODIUM 137 mEq/L (134-144); TOTAL PROTEIN 6.8 g/dL (6.3-8.2)
[2016-11-04 08:04] VITALS: BP 142/81; PULSE 87; RESP 20; TEMP 98; O2SAT 90
[2016-11-04] MEDS: ENOXAPARIN 40 MG/0.4 ML SYR SC SCH (08:32)
[2016-11-04] MEDS: LISINOPRIL 20 MG TAB PO SCH (08:36)
[2016-11-04] MEDS: VENLAFAXINE XR 150 MG CAP PO SCH (08:36)
[2016-11-04] MEDS: VENLAFAXINE XR 75 MG CAP PO SCH (08:37)
[2016-11-04] MEDS: AZITHROMYCIN 250 MG TAB PO SCH (08:38)
[2016-11-04] MEDS: PANTOPRAZOLE SODIUM 40 MG TAB PO SCH (08:38)
[2016-11-04] MEDS: guaiFENesin 600 MG TAB.ER PO SCH (08:38)
[2016-11-04] MEDS: SENNOSIDES/DOCUSATE SODIUM TAB PO SCH (08:39)
[2016-11-04] MEDS: metFORMIN HCL 850 MG TAB PO SCH (08:39)
[2016-11-04] MEDS: GABAPENTIN 100 MG CAP PO SCH (08:39)
[2016-11-04] MEDS: GABAPENTIN 400 MG CAP PO SCH (08:40)
[2016-11-04] MEDS: oxyCODONE IR 5 MG TAB PO SCH (08:40)
[2016-11-04] MEDS: AMOXICILLIN/CLAVULANATE POT 875/125 MG TAB PO SCH (08:41)
[2016-11-04] MEDS: INSULIN LISPRO 100 UNIT/ML SC SCH (08:51)
[2016-11-04] MEDS: ERTAPENEM 1 GM in NS 100 ML IV SCH (08:52)
[2016-11-04] MEDS: MAGNESIUM HYDROXIDE 30 ML UDCUP PO SCH (08:58)
--- NOTE | 2016-11-04 16:38 | GDS ---
DISCHARGE DIAGNOSES: 1. Community-acquired pneumonia versus aspiration. 2. Severe sepsis, requiring pressors for a short period of time. 3. Hypertension. 4. Chronic back pain. 5. History of cerebrovascular accident. 6. Prediabetes. HISTORY: This is an 81-year-old male, who presented with 1 day of upper respiratory tract infection symptoms, and chills and back pain. HOSPITAL COURSE: Patient was admitted and was actually hypotensive with an elevated lactate. He wa s placed on pressors. He was placed on antibiotics for pneumonia. He improved fairly quickly and o n discharge, he is on room air and is feeling essentially back to normal. He did have a video swall ow, which was negative. However, we will continue with Augmentin for 5 more days. He also has rece ived 5 days of azithromycin. FOLLOWUP INSTRUCTIONS: He is instructed to follow up with his primary care doctor. He does have an iron-deficiency anemia, which they can follow up on. He may be a little bit old for colonoscopy [facility]. /[id number]/MODL
== END 2016-11-04 12:01 | disposition home health service (06) | DRG 871 ==
LOC: EDUNIT# → F2N 13:37 → F3E 11-01 20:00
PROVIDERS: ADMIT Family Medicine; ATTEND Internal Medicine
PROC: 02HV33Z Insertion of Infusion Device into Superior Vena Cava, Percutaneous Approach (ICD-10-PCS; principal; 2016-10-31)
DX: A41.9 Sepsis, unspecified organism (principal); J18.9 Pneumonia, unspecified organism; I10 Essential (primary) hypertension; M54.9 Dorsalgia, unspecified; R73.03 Prediabetes; E87.1 Hypo-osmolality and hyponatremia; Z86.73 Personal history of transient ischemic attack (TIA), and cerebral infarction without residual deficits
CPT/HCPCS: 92526-GN; 92610-GN; 92611-GN; 96365; 97116-GP; 97161-GP; 97165-GO; 97535-GO; C1751; G8978-GP-CJ; G8979-GP-CI; G8980-GP-CI; G8996-GN-CI; G8997-GN-CH; G8997-GN-CI; J0456; J0696; J1335; J1650; J1815; J1885; P9041

== ENCOUNTER 2016-11-14 07:36 | Inpatient (IN) | payer OTHER, MEDICAID ==
--- NOTE | 2016-11-14 07:43 | EDPHY ---
H & P Time Seen by Provider: 11/14/16 07:43 HPI/ROS: CHIEF COMPLAINT: I feel just like it did when I had pneumonia; vomiting and weakness HISTORY OF PRESENT ILLNESS: Patient presents with by EMS with multiple symptoms including feeling dizzy and cold, and he was too weak this morning to use his walker. He does not feel short of breath but he was vomiting all morning. He is still on Augmentin or just finished it. Symptoms severe. Weakness is not focal. Worse over the past 48 hours, much worse today and unable to walk. REVIEW OF SYSTEMS: Eye: no change in vision ENT: no sore throat Cardiac: no chest pain or syncope Pulmonary: no cough or SOB Abdomen: No abdominal pain or diarrhea but multiple episodes of vomiting today. Musculoskeletal: Chronic back pain which he says is worse. Skin: no rash Neuro: no headache Constitutional: no fever : no urinary symptoms A comprehensive 10 point review of systems is otherwise negative aside from elements mentioned in the history of present illness. PAST MEDICAL HISTORY: Discharge summary dated 11/04/2016 personally reviewed, includes pneumonia, hypertension, pre diabetes, chronic back pain. Hypertension and stroke. Right shoulder surgery. Social history: Nonsmoker General Appearance: Alert and conversant, cooperative. Eyes: No scleral icterus. ENT, Mouth: Dry mucous membranes. Respiratory: Decreased breath sounds on the left, no wheezing or rhonchi. Cardiovascular: Regular rate and rhythm. Gastrointestinal: Abdomen is soft and non tender. Neurological: Alert and oriented x3. Normally conversant. Face symmetric, can move all 4 extremities but is generally weak. Nothing focal. Skin: Warm and dry, no rashes. Musculoskeletal: No peripheral edema and no joint swelling. Psychiatric: Not agitated. Emergency Department course/MDM: Sepsis screening with lactate, chest x-ray, antiemetics and IV fluids. Jalen for Dr. Dempsey, 851am. Does not meet SIRS criteria. Specifically normal white blood cell count, not febrile or hypothermic, respiratory rate less than 20. Admission for potential hospital-acquired pulmonary infection, broad-spectrum antibiotics to include cefepime and Levaquin. Smoking Status: Never smoked Constitutional: Initial Vital Signs Temperature (C) 37.4 C 11/14/16 07:36 Heart Rate 116 H 11/14/16 07:36 Respiratory Rate 18 11/14/16 07:36 Blood Pressure 160/80 H 11/14/16 07:36 O2 Sat (%) 93 11/14/16 07:36 O2 Delivery Mode Nasal Cannula O2 (L/minute) 2 Allergies/Adverse Reactions: No Known Allergies Allergy (Unverified 05/27/15 02:46) Home Medications: Medication Instructions Recorded Docusate Sodium [Colace 100 MG (*)] 100 mg PO BID PRN 05/28/15 Magnesium Hydroxide [Milk of 30 ml PO DAILY 05/28/15 Magnesia (*)] Bisacodyl [Dulcolax] 10 mg RC DAILY PRN 08/04/15 LORazepam [Ativan (*)] 0.5 mg PO TID PRN 08/04/15 Ondansetron Odt [Zofran Odt 4 mg 8 mg PO Q6H PRN 08/04/15 (*)] Polyethylene Glycol 3350 [Miralax 17 gm PO DAILY PRN 08/04/15 17 gm (*)] Tears/Hypromellose [Natural 1 drop EACHEYE Q4 PRN 08/04/15 Balance] Acetaminophen [Tylenol ES 500 mg 1,000 mg PO TID PRN 10/31/16 (*)] Ergocalciferol [Vitamin D2 (*)] 50,000 unit PO Q30D 10/31/16 Lisinopril [Zestril 30 mg] 30 mg PO DAILY 10/31/16 Magnesium Hydroxide [Milk of 30 ml PO DAILY PRN 10/31/16 Magnesia] Omeprazole [Prilosec 20 mg] 20 mg PO DAILY 10/31/16 Oxycodone HCl [OXYCODONE HCL] 10 mg PO TID 10/31/16 Sennosides/Docusate Sodium 2 each PO BID 10/31/16 [Senna-Docusate Sodium Tablet] Tamsulosin HCl 0.4 mg PO HS 10/31/16 Venlafaxine HCl [Venlafaxine HCl 75 mg PO DAILY 10/31/16 ER] Venlafaxine HCl [Venlafaxine HCl 150 mg PO DAILY 10/31/16 ER] guaiFENesin [Mucinex 600 MG (*)] 600 mg PO BID PRN 10/31/16 metFORMIN HCL [Glucophage 850 mg 850 mg PO DAILY 10/31/16 (*)] oxyCODONE IR [Oxycodone Ir (*)] 5 mg PO DAILY PRN 10/31/16 traZODone [traZODone 150MG (*)] 150 mg PO HS 10/31/16 Gabapentin [Neurontin 100 MG (*)] 200 mg PO TID 11/14/16 Gabapentin [Neurontin 400 MG (*)] 800 mg PO TID 11/14/16 Gluc Oxid/l-Peroxid/Muramidase 10 ml MM TID PRN 11/14/16 [Biotene Mouthwash (*)] Herbals/Supplements -Info Only 1 ea PO DAILY 11/14/16 Medical Decision Making - Diagnostics Imaging: Chest x-ray interpreted personally by myself shows a new left lower lobe pneumonia. Differential Diagnosis: Differential for vomiting and weakness considered including but not limited to UTI, pneumonia, metabolic abnormality, medication side effect. - Data Points Laboratory Results: Laboratory Results 11/14/16 07:50 11/14/16 07:50 11/14/16 11/14/16 11/14/16 08:30 08:20 07:50 WBC RBC Hgb Hct MCV MCH MCHC RDW Plt Count MPV Neut % (Auto) Lymph % (Auto) [place] % (Auto) Eos % (Auto) Baso % (Auto) Nucleat RBC Rel Count Absolute Neuts (auto) Absolute Lymphs (auto) Absolute Monos (auto) Absolute Eos (auto) Absolute Basos (auto) Absolute Nucleated RBC Immature Gran % Immature Gran # PT INR APTT VBG Lactic Acid 3.7 mmol/L H mmol/L (0.7-2.1) Sodium 134 mEq/L mEq/L (134-144) Potassium 4.6 mEq/L mEq/L (3.5-5.2) Chloride 96 mEq/L L mEq/L (97-110) Carbon Dioxide 26 mEq/l mEq/l (22-31) Anion Gap 12 mEq/L mEq/L (8-16) BUN 10 mg/dL mg/dL (7-23) Creatinine 0.8 mg/dL mg/dL (0.7-1.3) Estimated GFR > 60 Glucose 220 mg/dL H mg/dL (70-100) Calcium 9.0 mg/dL mg/dL (8.5-10.4) Total Bilirubin 0.7 mg/dL mg/dL (0.1-1.4) Urine Color YELLOW Urine Appearance CLEAR Urine pH 8.0 H (5.0-7.5) Ur Specific [place] 1.013 (1.002-1.030) Urine Protein NEGATIVE (NEGATIVE) Urine Ketones NEGATIVE (NEGATIVE) Urine Blood NEGATIVE (NEGATIVE) Urine Nitrate NEGATIVE (NEGATIVE) Urine Bilirubin NEGATIVE (NEGATIVE) Urine Urobilinogen NEGATIVE EU EU (0.2-1.0) Ur Leukocyte Esterase 1+ H (NEGATIVE) Urine RBC 5-10 /hpf H /hpf (0-3) Urine WBC 1-3 /hpf /hpf (0-3) Ur Epithelial Cells TRACE /lpf /lpf (NONE-1+) Urine Mucus TRACE /lpf /lpf (NONE-1+) Urine Glucose NEGATIVE (NEGATIVE) 11/14/16 11/14/16 07:50 07:50 WBC 9.21 10^3/uL 10^3/uL (3.80-9.50) RBC 5.21 10^6/uL 10^6/uL (4.40-6.38) Hgb 12.3 g/dL L g/dL (13.7-17.5) Hct 38.2 % L % (40.0-51.0) MCV 73.3 fL L fL (81.5-99.8) MCH 23.6 pg L pg (27.9-34.1) MCHC 32.2 g/dL L g/dL (32.4-36.7) RDW 16.2 % H % (11.5-15.2) Plt Count 253 10^3/uL 10^3/uL (150-400) MPV 9.6 fL fL (8.7-11.7) Neut % (Auto) 89.3 % H % (39.3-74.2) Lymph % (Auto) 3.7 % L % (15.0-45.0) [place] % (Auto) 6.2 % % (4.5-13.0) Eos % (Auto) 0.4 % L % (0.6-7.6) Baso % (Auto) 0.2 % L % (0.3-1.7) Nucleat RBC Rel Count 0.0 % % (0.0-0.2) Absolute Neuts (auto) 8.22 10^3/uL H 10^3/uL (1.70-6.50) Absolute Lymphs (auto) 0.34 10^3/uL L 10^3/uL (1.00-3.00) Absolute Monos (auto) 0.57 10^3/uL 10^3/uL (0.30-0.80) Absolute Eos (auto) 0.04 10^3/uL 10^3/uL (0.03-0.40) Absolute Basos (auto) 0.02 10^3/uL 10^3/uL (0.02-0.10) Absolute Nucleated RBC 0.00 10^3/uL 10^3/uL (0-0.01) Immature Gran % 0.2 % % (0.0-1.1) Immature Gran # 0.02 10^3/uL 10^3/uL (0.00-0.10) PT 13.8 SEC SEC (12.0-15.0) INR 1.07 (0.83-1.16) APTT 31.4 SEC SEC (23.0-38.0) VBG Lactic Acid Sodium Potassium Chloride Carbon Dioxide Anion Gap BUN Creatinine Estimated GFR Glucose Calcium Total Bilirubin Urine Color Urine Appearance Urine pH Ur Specific [place] Urine Protein Urine Ketones Urine Blood Urine Nitrate Urine Bilirubin Urine Urobilinogen Ur Leukocyte Esterase Urine RBC Urine WBC Ur Epithelial Cells Urine Mucus Urine Glucose Medications Given: Discontinued Medications Acetaminophen (Tylenol) 650 mg PO Q4HRS PRN PRN Reason: Pain, Mild/Fever, Can Take PO Stop: 05/13/17 11:36 Last Admin: 11/14/16 12:09 Dose: 650 mg Cefepime HCl 1 gm/ Dextrose 50 mls @ 100 mls/hr IV EDNOW ONE PRN Reason: Protocol Stop: 11/14/16 09:20 Last Admin: 11/14/16 09:00 Dose: 50 mls Levofloxacin/Dextrose (Levaquin 750 Mg (Premix)) 150 mls @ 100 mls/hr IV EDNOW ONE PRN Reason: Protocol Stop: 11/14/16 10:20 Last Admin: 11/14/16 09:13 Dose: 150 mls Sodium Chloride (Ns) 1,000 mls @ 0 mls/hr IV ONCE ONE PRN Reason: Wide Open Stop: 11/14/16 08:53 Last Admin: 11/14/16 10:30 Dose: 1,000 mls Sodium Chloride (Ns) 1,000 mls @ 0 mls/hr IV ONCE ONE PRN Reason: Wide Open Stop: 11/14/16 08:53 Last Admin: 11/14/16 09:00 Dose: 1,000 mls Departure - Departure Disposition: [facility] Inpatient Acute Clinical Impression: Pneumonia Qualifiers: Pneumonia type: due to unspecified organism Laterality: left Lung location: lower lobe of lung Qualified Code(s): J18.1 - Lobar pneumonia, unspecified organism Condition: Fair
[2016-11-14 08:14] LABS: % IMMATURE GRANULYOCYTES 0.2 % (0.0-1.1); ABSOLUTE IMMATURE GRANULOCYTES 0.02 10^3/uL (0.00-0.10); ADD DIFF? NO; ADD MORPH? NO; ADD SCAN? NO; ATYPICAL LYMPHOCYTE FLAG 0 (0-99); FRAGMENT RBC FLAG 0 (0-99); HEMATOCRIT 38.2 % (40.0-51.0); HEMOGLOBIN 12.3 g/dL (13.7-17.5); LEFT SHIFT FLG 0 (0-99); LIPEMIA HEMOLYSIS FLAG 80 (0-99); MEAN CELL HEMOGLOBIN 23.6 pg (27.9-34.1); MEAN CELL HEMOGLOBIN CONCENTR. 32.2 g/dL (32.4-36.7); MEAN CELL VOLUME 73.3 fL (81.5-99.8); MEAN PLATELET VOLUME 9.6 fL (8.7-11.7); PLATELET CLUMPS FLAG 0 (0-99); PLATELET COUNT 253 10^3/uL (150-400); RED BLOOD CELL COUNT 5.21 10^6/uL (4.40-6.38); RED CELL DISTRIBUTION WIDTH 16.2 % (11.5-15.2)
[2016-11-14 08:25] LABS: ANION GAP 12 mEq/L (8-16); BILIRUBIN,TOTAL 0.7 mg/dL (0.1-1.4); CARBON DIOXIDE 26 mEq/l (22-31); CHLORIDE 96 mEq/L (97-110); CREATININE 0.8 mg/dL (0.7-1.3); GLOMERULAR FILTRATION RATE > 60; GLUCOSE 220 mg/dL (70-100); POTASSIUM 4.6 mEq/L (3.5-5.2); SODIUM 134 mEq/L (134-144)
[2016-11-14 08:27] LABS: COLOR YELLOW; LEUKOCYTE ESTERASE,URINE 1+ (NEGATIVE); NITRITE,URINE NEGATIVE (NEGATIVE)
[2016-11-14 08:31] LABS: MUCUS TRACE /lpf (NONE-1+)
[2016-11-14 08:33] LABS: INR 1.07 (0.83-1.16); PROTIME(PATIENT) 13.8 SEC (12.0-15.0)
[2016-11-14 08:34] LABS: APTT 31.4 SEC (23.0-38.0)
[2016-11-14] MEDS ORDERED: CEFEPIME HCL 1 GM in D5W 50 ML IV ONE (08:51)
[2016-11-14] MEDS ORDERED: NS 1,000 ML IV ONE ×2 (08:52)
[2016-11-14 09:32] LABS: LACGHOST ORDER
[2016-11-14] MEDS ORDERED: ACETAMINOPHEN 325 MG TAB PO PRN (11:37)
[2016-11-14] MEDS ORDERED: ONDANSETRON DISINTEGRATING 4 MG TAB PO PRN ×2 (11:37→12:00)
[2016-11-14] MEDS ORDERED: ONDANSETRON 4 MG/2 ML VIAL IVP PRN (11:37)
[2016-11-14] MEDS ORDERED: NS 1,000 ML IV SCH (11:45)
[2016-11-14] MEDS ORDERED: guaiFENesin 600 MG TAB.ER PO PRN (12:00)
[2016-11-14] MEDS ORDERED: HYPROMELLOSE EACHEYE PRN (12:00)
[2016-11-14] MEDS ORDERED: POLYETHYLENE GLYCOL 3350 17 GM PKT PO PRN (12:00)
[2016-11-14] MEDS ORDERED: BIOTENE DRY MOUTH MOUTHWASH 237 ML BTL MM PRN (12:00)
[2016-11-14] MEDS ORDERED: TEARS EACHEYE PRN (12:00)
[2016-11-14] MEDS ORDERED: BISACODYL 10 MG SUPP PR PRN (12:00)
[2016-11-14] MEDS ORDERED: DOCUSATE SODIUM 100 MG CAP PO PRN (12:00)
[2016-11-14] MEDS ORDERED: D50W 25 GM/50 ML SYR IVP PRN (12:10)
[2016-11-14] MEDS ORDERED: OXYCODONE HCL 10 MG PO PRN (12:28)
--- NOTE | 2016-11-14 13:11 | GHP ---
[f rep st] HISTORY AND PHYSICAL DATE OF ADMISSION: 11/14/2016 CHIEF COMPLAINT: Dizziness with associated fever and multiple bouts of emesis. HISTORY OF PRESENT ILLNESS: The patient is an 81-year-old male, who has a history of chronic back pain, iron deficiency anemia, stroke and hearing loss who resides at [facility]. He presented to the emergency room with complaints of dizziness, fever, chills, and feeling too weak to use his walker. He was recently admitted to [facility] with sepsis secondary to pneumonia. He was discharged on November 08 and just finished a course of Augmentin. When evaluating the patient, he stated that he has the exact same symptoms of pneumonia that he had on his prior admission. He is also complaining of a headache, as well as back pain. He has back pain that is constant. In addition, he says that he has left hip pain but this is chronic. His appetite has been poor. He has not been coughing. He has had multiple bouts of emesis, approximately 4-5 times last night and had another bout this morning. He describes it as being non bloody. He denies any chest pain, he does not have any shortness of breath. He has a history of multiple bouts of pneumonia. PAST MEDICAL HISTORY: 1. Hypertension. 2. Chronic back pain. 3. Iron-deficiency anemia. 4. History of stroke. 5. Significant hearing loss. 6. Prediabetes. 7. Recent community acquired pneumonia versus aspiration with associated sepsis. PAST SURGICAL HISTORY: 1. Bilateral knee surgery/right knee replacement. 2. Back surgery. 3. Rotator cuff surgery. SOCIAL HISTORY: He resides at [facility]. He denies any alcohol or tobacco use. He said that he smoked in his teenage years. He is . He has 3 daughters and 1 son. FAMILY HISTORY: Reviewed and noncontributory. ALLERGIES: No known allergies. HOME MEDICATIONS: Biotene mouthwash t.i.d. p.r.n. ,Tylenol 1000 mg t.i.d. p.r.n., vitamin D 36076 units q.30 days, Colace 100 mg p.o. b.i.d. p.r.n., Dulcolax 10 mg rectally daily p.r.n., Neurontin 800 mg p.o. t.i.d., Ativan 0.5 mg t.i.d. p.r.n., Neurontin 200 mg p.o. t.i.d., milk of magnesia 30 mL daily p.r.n., lisinopril 30 mg daily, Zofran ODT 8 mg q.6 hours p.r.n., Prilosec 20 mg daily, Senna 2 tabs b.i.d., MiraLAX 17 g daily p.r.n., oxy 10 mg p.o. t.i.d. , Flomax 0.4 mg p.o. q.h.s., guaifenesin 600 mg b.i.d. p.r.n., venlafaxine HCL ER 75 mg daily and 150 mg daily, metformin 850 mg daily, Oxy-IR 5 mg daily p.r.n., and trazodone 150 mg p.o. q.h.s. REVIEW OF SYSTEMS: A 10-point review of system was performed, was negative other than the pertinent positives in the HPI and past medical history. PHYSICAL EXAM: GENERAL: The patient is an 81-year-old male, who does not appear to be in any acute distress. VITAL SIGNS: Blood pressure is 107/63, heart rate is 96, respiratory rate is 14, O2 sats on room air are 87%, temperature is 37.9 Celsius. EYES: He blinks with his left eye frequently during my interview. His pupils are equal and reactive. EOMs are intact. He is wearing glasses. ENT: He is very hard of hearing. You have to speak to his left ear loudly. His oral airway is dry. NECK: Trachea is midline. No masses. CARDIOVASCULAR: He has a regular rate and rhythm. No murmurs, rubs, or gallops noted. 2+ pedal pulses. CHEST/LUNGS: He has normal respiratory effort. Diminished at the bases. No rhonchi or rales noted. ABDOMEN: Large and round and nontender. SKIN: No rashes noted. MUSCULOSKELETAL: He has equal upper and lower extremity strength. PSYCHIATRIC: He is alert and oriented. Normal mood and affect. Normal judgment, insight and normal memory. DATA REVIEWED: Chest x-ray was performed which showed a new left lower lobe pneumonia. He has an improving right lower lobe pneumonia. There is a question in the report if he may be aspirating from reflux. LABORATORY DATA: A CBC shows a white blood cell count of 9.21, a hemoglobin of 12.3, hematocrit of 38.2, MCV is 73, platelet count of 253. Chemistry: Sodium is 134, potassium 4.6, chloride 96, CO2 of 26, BUN of 10, creatinine of 0.8, glucose of 220. Lactate is elevated at 3.7. Urinalysis was performed which showed a specific gravity of 8 with 5-10 red blood cells. ASSESSMENT: 1. Pneumonia. Blood cultures were checked in the emergency room. Will ask Speech Therapy to further evaluate him again on this admission to rule out any type of aspiration. He will be started on ertapenem and followed. Lactate is elevated. Will recheck. 2. Headache. PRN Tylenol. 3. Hyperglycemia. The patient is prediabetic. His glucose is 220. Will check a hemoglobin A1c. Will place him on sliding scale insulin. For now will hold his metformin. 4. Acute hypoxemia. His oxygen levels on room air are 87%. The patient states that he normally does not wear oxygen. Will check him for influenza. 5. Mild dysphagia. This was noted on his video esophagram on his last admission on November 02. Will ask Speech Therapy to see if this is contributing to his issues. 6. Chronic back pain on chronic opiates. He takes scheduled narcotics, as well as gabapentin. 7. Iron-deficiency anemia. Recommendation on last discharge was to get further followup. 8. DVT prophylaxis. High risk. Will place him on low molecular weight heparin. 9. Code status. Full. 10. Length of stay. I suspect he will require greater than a 2 midnight stay for treatment of his pneumonia and further evaluation of his diabetes. /[id number]/MODL MTDD
[2016-11-14] MEDS ORDERED: INSULIN LISPRO 100 UNIT/ML SC ONE (13:13)
[2016-11-14] MEDS: ERTAPENEM 1 GM in NS 100 ML IV SCH (13:28)
[2016-11-14] MEDS: INSULIN LISPRO 100 UNIT/ML SC SCH ×2 (13:29→17:02)
[2016-11-14] MEDS: GABAPENTIN 400 MG CAP PO SCH ×2 (15:53→21:01)
[2016-11-14] MEDS: GABAPENTIN 100 MG CAP PO SCH ×2 (15:53→21:01)
[2016-11-14] MEDS ORDERED: OXYCODONE HCL 10 MG PO SCH (16:00)
[2016-11-14] MEDS: oxyCODONE IR 5 MG TAB PO PRN (17:01)
[2016-11-14] MEDS: guaiFENesin 600 MG TAB.ER PO SCH (21:01)
[2016-11-14] MEDS: SENNOSIDES/DOCUSATE SODIUM TAB PO SCH (21:01)
[2016-11-14] MEDS: TAMSULOSIN HCL 0.4 MG CAP PO SCH (21:01)
[2016-11-15 05:19] LABS: % IMMATURE GRANULYOCYTES 0.3 % (0.0-1.1); ABSOLUTE IMMATURE GRANULOCYTES 0.02 10^3/uL (0.00-0.10); ADD DIFF? NO; ADD MORPH? NO; ADD SCAN? NO; ATYPICAL LYMPHOCYTE FLAG 0 (0-99); FRAGMENT RBC FLAG 0 (0-99); HEMATOCRIT 32.6 % (40.0-51.0); HEMOGLOBIN 10.2 g/dL (13.7-17.5); LEFT SHIFT FLG 0 (0-99); LIPEMIA HEMOLYSIS FLAG 80 (0-99); MEAN CELL HEMOGLOBIN 23.3 pg (27.9-34.1); MEAN CELL HEMOGLOBIN CONCENTR. 31.3 g/dL (32.4-36.7); MEAN CELL VOLUME 74.6 fL (81.5-99.8); MEAN PLATELET VOLUME 9.2 fL (8.7-11.7); PLATELET CLUMPS FLAG 0 (0-99); PLATELET COUNT 182 10^3/uL (150-400); RED BLOOD CELL COUNT 4.37 10^6/uL (4.40-6.38); RED CELL DISTRIBUTION WIDTH 16.6 % (11.5-15.2)
[2016-11-15 05:40] LABS: ALANINE AMINOTRANSFERASE 36 IU/L (21-72); ALBUMIN 3.2 g/dL (3.5-5.0); ALKALINE PHOSPHATASE 92 IU/L (38-126); ANION GAP 9 mEq/L (8-16); ASPARTATE AMINOTRANSFERASE 21 IU/L (17-59); BILIRUBIN,TOTAL 0.5 mg/dL (0.1-1.4); CALCIUM 8.4 mg/dL (8.5-10.4); CARBON DIOXIDE 22 mEq/l (22-31); CHLORIDE 104 mEq/L (97-110); CREATININE 0.7 mg/dL (0.7-1.3); GLOMERULAR FILTRATION RATE > 60; GLUCOSE 167 mg/dL (70-100); POTASSIUM 4.4 mEq/L (3.5-5.2); SODIUM 135 mEq/L (134-144)
[2016-11-15] MEDS ORDERED: Herbals/Supplements -Info Only PO SCH (09:00)
[2016-11-15] MEDS ORDERED: NON-FORMULARY NEW DRUG (Lisinopril [Zestril 30 Mg] 30 MG) PO SCH (09:00)
[2016-11-15] MEDS ORDERED: NON-FORMULARY NEW DRUG (Omeprazole [Prilosec 20 Mg] 20 MG) PO SCH (09:00)
[2016-11-15 09:55] LABS: HEMOGLOBIN A1C 7.6 % (4.0-6.0)
[2016-11-15] MEDS: ENOXAPARIN 40 MG/0.4 ML SYR SC SCH (09:59)
[2016-11-15] MEDS: PANTOPRAZOLE SODIUM 40 MG TAB PO SCH (10:15)
[2016-11-15] MEDS: guaiFENesin 600 MG TAB.ER PO SCH ×2 (10:15→21:04)
[2016-11-15] MEDS: LISINOPRIL 10 MG TAB PO SCH (10:16)
[2016-11-15] MEDS: SENNOSIDES/DOCUSATE SODIUM TAB PO SCH ×2 (10:19→21:02)
[2016-11-15] MEDS: GABAPENTIN 100 MG CAP PO SCH ×3 (10:20→21:03)
[2016-11-15] MEDS: VENLAFAXINE XR 150 MG CAP PO SCH (10:20)
[2016-11-15] MEDS: oxyCODONE IR 5 MG TAB PO PRN ×3 (10:24→17:16)
[2016-11-15] MEDS: VENLAFAXINE XR 75 MG CAP PO SCH (10:24)
[2016-11-15] MEDS: ERTAPENEM 1 GM in NS 100 ML IV SCH (10:25)
[2016-11-15] MEDS: GABAPENTIN 400 MG CAP PO SCH ×3 (10:39→21:03)
[2016-11-15] MEDS: INSULIN LISPRO 100 UNIT/ML SC SCH ×3 (11:12→19:09)
--- NOTE | 2016-11-15 14:52 | HOSPPROG ---
Hospitalist Progress Note Assessment/Plan: # acute hypoxic respiratory failure secondary to presumed community-acquired pneumonia- oxygen saturations 87% on room air patient describes an episode of emesis preceding his symptoms fatigue and shortness of breath- query aspiration chest x-ray( personally reviewed and interpreted) new left lower lobe infiltrate - continue IV antibiotics - follow blood cultures # pneumonia- community-acquired versus aspiration- white count 6.5 this morning - antibiotics as above - speech therapy evaluation # hyperglycemia- hemoglobin A1c pending- depending and elevation may be a candidate for metformin # iron deficiency anemia- stable H&H # prophylaxis Lovenox # diet regular # disposition greater than 2 midnights as the patient is greater than 80 presenting with acute hypoxic respiratory failure requiring antibiotic treatment and supportive care I have discussed the case with Case Management suspect patient can return home to [facility] after acute treatment Subjective: feeling better Objective: Vital Signs Temp Pulse Resp BP Pulse Ox 36.8 C 80 18 141/71 H 90 L 11/15/16 11:35 11/15/16 11:35 11/15/16 11:35 11/15/16 11:35 11/15/16 11:35 Laboratory Results 11/15/16 05:06 11/15/16 05:06 11/14/16 11/15/16 11/16/16 05:59 05:59 05:59 Intake Total 5500 Output Total 1875 300 Balance 3625 -300 PT 13.8 SEC (12.0-15.0) 11/14/16 07:50 INR 1.07 (0.83-1.16) 11/14/16 07:50 - Physical Exam Constitutional: appears nourished Eyes: anicteric sclera Ears, Nose, Mouth, Throat: moist mucous membranes Cardiovascular: regular rate and rhythym, systolic murmur Respiratory: no respiratory distress, No expiratory wheeze Gastrointestinal: normoactive bowel sounds, soft, non-tender abdomen Genitourinary: no bladder fullness Skin: warm, normal color Musculoskeletal: No asymmetric calves Neurologic: AAOx3 Psychiatric: interacting appropriately Lymph, Heme, Immunologic: no cervical LAD ICD10 Worksheet Patient Problems: Problems Problem Status Onset Pneumonia Acute Acute encephalopathy Acute Hypoxemia requiring supplemental oxygen Acute Pneumonia Acute Sepsis Acute Weakness of both lower extremities Acute
[2016-11-15] MEDS ORDERED: PNEUMOC 13-VAL CONJ-DIP CRM/PF 0.5 ML SYR IM ONE (16:32)
[2016-11-15] MEDS: ACETAMINOPHEN 500 MG TAB PO PRN (21:03)
[2016-11-15] MEDS: TAMSULOSIN HCL 0.4 MG CAP PO SCH (21:04)
[2016-11-16] MEDS: ERTAPENEM 1 GM in NS 100 ML IV SCH (08:43)
[2016-11-16] MEDS: LISINOPRIL 10 MG TAB PO SCH (08:43)
[2016-11-16] MEDS: VENLAFAXINE XR 150 MG CAP PO SCH (08:43)
[2016-11-16] MEDS: SENNOSIDES/DOCUSATE SODIUM TAB PO SCH ×2 (08:44→20:21)
[2016-11-16] MEDS: ENOXAPARIN 40 MG/0.4 ML SYR SC SCH (08:44)
[2016-11-16] MEDS: GABAPENTIN 400 MG CAP PO SCH ×3 (08:44→20:20)
[2016-11-16] MEDS: GABAPENTIN 100 MG CAP PO SCH ×3 (08:44→20:19)
[2016-11-16] MEDS: PANTOPRAZOLE SODIUM 40 MG TAB PO SCH (08:45)
[2016-11-16] MEDS: VENLAFAXINE XR 75 MG CAP PO SCH (08:45)
[2016-11-16] MEDS: guaiFENesin 600 MG TAB.ER PO SCH ×2 (08:45→20:20)
[2016-11-16] MEDS: INSULIN LISPRO 100 UNIT/ML SC SCH ×3 (08:45→17:59)
--- NOTE | 2016-11-16 16:43 | GDS ---
Addendum to dc summary - Insurance company has not provided official approval patient staying overnight to wait Physical Exam 133/77 (75) oxygen saturation 95% on 1L Constitutional: appears nourished Eyes: anicteric sclera Ears, Nose, Mouth, Throat: moist mucous membranes Cardiovascular: regular rate and rhythym, systolic murmur Respiratory: no respiratory distress, No expiratory wheeze Gastrointestinal: normoactive bowel sounds, soft, non-tender abdomen Genitourinary: no bladder fullness Skin: warm, normal color Musculoskeletal: No asymmetric calves Neurologic: AAOx3 Psychiatric: interacting appropriately Lymph, Heme, Immunologic: no cervical LAD Blood sugars 137-185 today I have discussed the case with CM - without official approval pt cannot transfer today - will dc the dc order and continue care outlined below [f rep st] DISCHARGE SUMMARY DISCHARGE DIAGNOSES: 1. Acute left lower lobe pneumonia, presumed aspiration. 2. Acute hypoxic respiratory failure secondary to aspiration pneumonia. 3. Diabetes. 4. Chronic iron deficiency anemia. HISTORY OF PRESENT ILLNESS: An 81-year-old male, who presented with acute fatigue and dizziness. For details of patient's initial presentation, please reference the history and physical dated 11/14/2016. HOSPITAL COURSE BY ISSUE: 1. Acute aspiration pneumonia: I believe this may be recurrent aspiration pneumonia for this patient. He reports episodes of emesis prior to shortness of breath and new infiltrate seen on chest x-ray. Patient was initiated on IV antibiotics and is being transitioned to oral Augmentin to complete a 7-day course. He is being discharged to rehabilitation for PT, OT as well as speech therapy, and coaching related to his aspiration. 2. Diabetes: Patient's hemoglobin A1c is measured at 7.6 on presentation. He will be continued on his metformin dose seen. 3. Chronic iron deficiency anemia: Patient's H and H 12 and 38 at presentation. Patient did not have a diagnostic workup related to this diagnosis during this stay. 4. Hypertension: Continue his home medications without change. MEDICATIONS AT THE TIME OF DISPOSITION: Please reference med reconciliation on 11/16/2016. PENDING STUDIES AT TIME OF DICTATION: Blood cultures drawn 11/14/2016, which are preliminary no growth to date. FOLLOWUP APPOINTMENTS: Include with his primary care provider after release from rehabilitation, for management of his chronic medical comorbidities. TIME: I spent greater than 30 minutes in the planning and coordination of this discharge. /[id number]/MODL MTDD
[2016-11-16] MEDS: TAMSULOSIN HCL 0.4 MG CAP PO SCH (20:19)
[2016-11-17] MEDS: INSULIN LISPRO 100 UNIT/ML SC SCH ×3 (07:45→18:34)
[2016-11-17] MEDS: TEARS/DEXTRAN 70/HYPROMELLOSE 15 ML OPHT.BTL EACHEYE PRN ×2 (08:47→12:22)
[2016-11-17] MEDS: LISINOPRIL 10 MG TAB PO SCH (08:49)
[2016-11-17] MEDS: ENOXAPARIN 40 MG/0.4 ML SYR SC SCH (08:49)
[2016-11-17] MEDS: PANTOPRAZOLE SODIUM 40 MG TAB PO SCH (08:50)
[2016-11-17] MEDS: guaiFENesin 600 MG TAB.ER PO SCH ×2 (08:50→19:35)
[2016-11-17] MEDS: GABAPENTIN 400 MG CAP PO SCH ×3 (08:50→20:39)
[2016-11-17] MEDS: VENLAFAXINE XR 75 MG CAP PO SCH (08:50)
[2016-11-17] MEDS: VENLAFAXINE XR 150 MG CAP PO SCH (08:51)
[2016-11-17] MEDS: GABAPENTIN 100 MG CAP PO SCH ×3 (08:51→20:39)
[2016-11-17] MEDS: SENNOSIDES/DOCUSATE SODIUM TAB PO SCH ×2 (08:51→19:34)
[2016-11-17] MEDS: ERTAPENEM 1 GM in NS 100 ML IV SCH (08:51)
--- NOTE | 2016-11-17 11:19 | HOSPPROG ---
Hospitalist Progress Note Assessment/Plan: # acute hypoxic respiratory failure secondary to presumed community-acquired pneumonia- oxygen saturations 93% on 1L patient describes an episode of emesis preceding his symptoms fatigue and shortness of breath- query aspiration chest x-ray (personally reviewed and interpreted) new left lower lobe infiltrate- as well as remnant infiltrate on right - continue IV antibiotics while inpatient then transition to Augmentin PO - blood cultures- remain NGTD today # pneumonia- community-acquired versus aspiration- white count 6.5 - antibiotics as above - speech therapy evaluation # hyperglycemia- hemoglobin A1c 7.6- BS overnight 140-190 - continue metformin # iron deficiency anemia- stable H&H # prophylaxis Lovenox # diet regular # disposition greater than 2 midnights as the patient is greater than 80 presenting with acute hypoxic respiratory failure requiring antibiotic treatment and supportive care I have discussed the case with Case Management - patient remains medically stable for DC Subjective: feels great Objective: Vital Signs Temp Pulse Resp BP Pulse Ox 37.0 C 71 16 134/78 H 94 11/17/16 07:24 11/17/16 07:24 11/17/16 07:24 11/17/16 07:24 11/17/16 07:24 Laboratory Results 11/15/16 05:06 11/15/16 05:06 11/16/16 11/17/16 11/18/16 05:59 05:59 05:59 Intake Total 2000 350 Output Total 300 1625 Balance 1700 -1275 PT 13.8 SEC (12.0-15.0) 11/14/16 07:50 INR 1.07 (0.83-1.16) 11/14/16 07:50 - Physical Exam Constitutional: appears nourished Eyes: anicteric sclera Ears, Nose, Mouth, Throat: moist mucous membranes Cardiovascular: regular rate and rhythym Respiratory: no respiratory distress, No expiratory wheeze, No inspiratory crackles Gastrointestinal: normoactive bowel sounds Genitourinary: no bladder fullness Skin: warm, normal color Musculoskeletal: No asymmetric calves Neurologic: AAOx3 Psychiatric: interacting appropriately, not anxious Lymph, Heme, Immunologic: no cervical LAD ICD10 Worksheet Patient Problems: Problems Problem Status Onset Pneumonia Acute Acute encephalopathy Acute Hypoxemia requiring supplemental oxygen Acute Pneumonia Acute Sepsis Acute Weakness of both lower extremities Acute
--- NOTE | 2016-11-17 11:20 | PDIAF ---
- Diagnosis Diagnosis: pneumonia Code Status: Full Code - Medication Management Discharge Medications: Medications to Continue on Transfer Docusate Sodium [Colace 100 MG (*)] 100 mg PO BID PRN 05/28/15 [Last Taken 11/13 21:00] Magnesium Hydroxide [Milk of Magnesia (*)] 30 ml PO DAILY 05/28/15 [Last Taken 11/13/16] Bisacodyl [Dulcolax] 10 mg RC DAILY PRN 08/04/15 [Last Taken Unknown] LORazepam [Ativan (*)] 0.5 mg PO TID PRN 08/04/15 [Last Taken 11/13/16] Ondansetron Odt [Zofran Odt 4 mg (*)] 8 mg PO Q6H PRN 08/04/15 [Last Taken 10/31] Polyethylene Glycol 3350 [Miralax 17 gm (*)] 17 gm PO DAILY PRN 08/04/15 [Last Taken 08/04/15] Tears/Hypromellose [Natural Balance] 1 drop EACHEYE Q4 PRN 08/04/15 [Last Taken Unknown] Acetaminophen [Tylenol ES 500 mg (*)] 1,000 mg PO TID PRN 10/31/16 [Last Taken 11/12/16] Ergocalciferol [Vitamin D2 (*)] 50,000 unit PO Q30D 10/31/16 [Last Taken ] Lisinopril [Zestril 30 mg] 30 mg PO DAILY 10/31/16 [Last Taken 11/13/16] Magnesium Hydroxide [Milk of Magnesia] 30 ml PO DAILY PRN 10/31/16 [Last Taken Unknown] Omeprazole [Prilosec 20 mg] 20 mg PO DAILY 10/31/16 [Last Taken 11/13/16] Oxycodone HCl [OXYCODONE HCL] 10 mg PO TID 10/31/16 [Last Taken 11/13/16 20:00] Sennosides/Docusate Sodium [Senna-Docusate Sodium Tablet] 2 each PO BID [Last Taken 11/13/16 21:00] Tamsulosin HCl 0.4 mg PO HS 10/31/16 [Last Taken 11/13/16] Venlafaxine HCl [Venlafaxine HCl ER] 75 mg PO DAILY 10/31/16 [Last Taken ] Venlafaxine HCl [Venlafaxine HCl ER] 150 mg PO DAILY 10/31/16 [Last Taken ] guaiFENesin [Mucinex 600 MG (*)] 600 mg PO BID PRN 10/31/16 [Last Taken 11/10/16 ] metFORMIN HCL [Glucophage 850 mg (*)] 850 mg PO DAILY 10/31/16 [Last Taken 11/13] oxyCODONE IR [Oxycodone Ir (*)] 5 mg PO DAILY PRN 10/31/16 [Last Taken 11/13/16] traZODone [traZODone 150MG (*)] 150 mg PO HS 10/31/16 [Last Taken 11/13/16] Gabapentin [Neurontin 100 MG (*)] 200 mg PO TID 11/14/16 [Last Taken 11/13/16 20 :00] Gabapentin [Neurontin 400 MG (*)] 800 mg PO TID 11/14/16 [Last Taken 11/13/16 20 :00] Gluc Oxid/l-Peroxid/Muramidase [Biotene Mouthwash (*)] 10 ml MM TID PRN [Last Taken 11/10/16] Herbals/Supplements -Info Only 1 ea PO DAILY 11/14/16 [Last Taken Unknown] Amoxicillin/Clavulanate Pot [Augmentin 875 MG TAB (*)] 875 mg PO BID #8 tab [Last Taken Unknown] Discharge Medications: Refer to the Discharge Home Medication list for PRN reason. - Orders Services needed: Registered Nurse, Physical Therapy, Occupational Therapy, Speech Language Pathologist Diet Recommendation: ADA 2200 consistent carb Diet Texture: Regular Texture Diet - Follow Up Care Current Providers and Referrals: NONE *PRIMARY CARE P,. [Unknown] - As per Instructions
[2016-11-17] MEDS: ACETAMINOPHEN 500 MG TAB PO PRN (15:10)
[2016-11-17] MEDS: LORazepam 0.5 MG TAB PO PRN (15:15)
[2016-11-17] MEDS: TAMSULOSIN HCL 0.4 MG CAP PO SCH (19:36)
[2016-11-18] MEDS: ACETAMINOPHEN 500 MG TAB PO PRN (02:05)
[2016-11-18] MEDS: TEARS/DEXTRAN 70/HYPROMELLOSE 15 ML OPHT.BTL EACHEYE PRN (07:52)
[2016-11-18] MEDS: ENOXAPARIN 40 MG/0.4 ML SYR SC SCH (09:10)
[2016-11-18] MEDS: LISINOPRIL 10 MG TAB PO SCH (09:11)
[2016-11-18] MEDS: GABAPENTIN 100 MG CAP PO SCH ×3 (09:12→20:49)
[2016-11-18] MEDS: PANTOPRAZOLE SODIUM 40 MG TAB PO SCH (09:12)
[2016-11-18] MEDS: GABAPENTIN 400 MG CAP PO SCH ×3 (09:12→20:49)
[2016-11-18] MEDS: guaiFENesin 600 MG TAB.ER PO SCH ×2 (09:12→20:48)
[2016-11-18] MEDS: INSULIN LISPRO 100 UNIT/ML SC SCH ×3 (09:16→18:10)
[2016-11-18] MEDS: ERTAPENEM 1 GM in NS 100 ML IV SCH (09:18)
[2016-11-18] MEDS: VENLAFAXINE XR 150 MG CAP PO SCH (09:24)
[2016-11-18] MEDS: SENNOSIDES/DOCUSATE SODIUM TAB PO SCH ×2 (09:25→20:48)
[2016-11-18] MEDS: VENLAFAXINE XR 75 MG CAP PO SCH (09:25)
[2016-11-18] MEDS: LORazepam 0.5 MG TAB PO PRN (09:35)
--- NOTE | 2016-11-18 15:24 | HOSPPROG ---
Hospitalist Progress Note Assessment/Plan: # acute hypoxic respiratory failure secondary to presumed community-acquired pneumonia- oxygen saturations 93% on 1L patient describes an episode of emesis preceding his symptoms fatigue and shortness of breath- query aspiration chest x-ray - new left lower lobe infiltrate- as well as remnant infiltrate on right - continue IV antibiotics while inpatient then transition to Augmentin PO - blood cultures- remain NGTD today # pneumonia- community-acquired versus aspiration- white count 6.5 - antibiotics as above - speech therapy evaluation # hyperglycemia- hemoglobin A1c 7.6- BS overnight 135-180 - continue metformin on dc # iron deficiency anemia- stable H&H # prophylaxis Lovenox # diet regular # disposition greater than 2 midnights as the patient is greater than 80 presenting with acute hypoxic respiratory failure requiring antibiotic treatment and supportive care I have discussed the case with Case Management - patient remains medically stable for DC- [facility] for return tomorrow Subjective: breathing comfortably Objective: Vital Signs Temp Pulse Resp BP Pulse Ox 37.1 C 76 15 131/82 H 94 11/18/16 08:00 11/18/16 08:00 11/18/16 08:00 11/18/16 08:00 11/18/16 08:00 Laboratory Results 11/15/16 05:06 11/15/16 05:06 11/17/16 11/18/16 11/19/16 05:59 05:59 05:59 Intake Total 350 400 Output Total 1625 Balance -1275 400 PT 13.8 SEC (12.0-15.0) 11/14/16 07:50 INR 1.07 (0.83-1.16) 11/14/16 07:50 - Physical Exam Constitutional: appears nourished Eyes: anicteric sclera Ears, Nose, Mouth, Throat: moist mucous membranes Cardiovascular: regular rate and rhythym, no murmur, rub, or gallop Respiratory: no respiratory distress Gastrointestinal: normoactive bowel sounds, soft, non-tender abdomen Genitourinary: no bladder fullness Skin: warm, normal color Musculoskeletal: No asymmetric calves Neurologic: AAOx3 Psychiatric: interacting appropriately Lymph, Heme, Immunologic: no cervical LAD ICD10 Worksheet Patient Problems: Problems Problem Status Onset Pneumonia Acute Acute encephalopathy Acute Hypoxemia requiring supplemental oxygen Acute Pneumonia Acute Sepsis Acute Weakness of both lower extremities Acute
[2016-11-18] MEDS: TAMSULOSIN HCL 0.4 MG CAP PO SCH (20:49)
[2016-11-19] MEDS: ENOXAPARIN 40 MG/0.4 ML SYR SC SCH (08:58)
[2016-11-19] MEDS: GABAPENTIN 100 MG CAP PO SCH ×3 (08:58→20:28)
[2016-11-19] MEDS: guaiFENesin 600 MG TAB.ER PO SCH ×2 (08:59→20:29)
[2016-11-19] MEDS: SENNOSIDES/DOCUSATE SODIUM TAB PO SCH ×2 (08:59→20:26)
[2016-11-19] MEDS: VENLAFAXINE XR 150 MG CAP PO SCH (09:00)
[2016-11-19] MEDS: GABAPENTIN 400 MG CAP PO SCH ×3 (09:01→20:26)
[2016-11-19] MEDS: LISINOPRIL 10 MG TAB PO SCH (09:01)
[2016-11-19] MEDS: PANTOPRAZOLE SODIUM 40 MG TAB PO SCH (09:01)
[2016-11-19] MEDS: VENLAFAXINE XR 75 MG CAP PO SCH (09:01)
[2016-11-19] MEDS: INSULIN LISPRO 100 UNIT/ML SC SCH ×3 (09:02→17:08)
[2016-11-19] MEDS: LORazepam 0.5 MG TAB PO PRN ×2 (10:54→19:14)
[2016-11-19] MEDS: AMOXICILLIN/CLAVULANATE POT 875/125 MG TAB PO SCH ×2 (11:40→20:25)
[2016-11-19] MEDS: ERTAPENEM 1 GM in NS 100 ML IV SCH (11:42)
--- NOTE | 2016-11-19 14:22 | HOSPPROG ---
Hospitalist Progress Note Assessment/Plan: #Acute hypoxemic resp failure: resolved. Due to CAP #CAP: changed to Augmentin. Will complete a 7 day-course #Hyperglycemia: A1c 7.5%. Started on Metformin #Iron deficiency anemia: ferrous sulfate #Deconditioning: plan to DC to [facility] #Disp: DC tomorrow Subjective: no CP or SOB Objective: Vital Signs Temp Pulse Resp BP Pulse Ox 37.1 C 73 18 121/69 H 90 L 11/19/16 11:38 11/19/16 11:38 11/19/16 11:38 11/19/16 11:38 11/19/16 11:38 Laboratory Results 11/15/16 05:06 11/15/16 05:06 11/18/16 11/19/16 11/20/16 05:59 05:59 05:59 Intake Total 400 1100 Balance 400 1100 PT 13.8 SEC (12.0-15.0) 11/14/16 07:50 INR 1.07 (0.83-1.16) 11/14/16 07:50 - Physical Exam Constitutional: no apparent distress Eyes: PERRL Ears, Nose, Mouth, Throat: moist mucous membranes, hearing normal Cardiovascular: regular rate and rhythym, no murmur, rub, or gallop Respiratory: no respiratory distress, no rales or rhonchi Gastrointestinal: normoactive bowel sounds Genitourinary: no bladder fullness Skin: warm Musculoskeletal: full muscle strength Neurologic: AAOx3, CN II-XII Intact Psychiatric: interacting appropriately, not anxious ICD10 Worksheet Patient Problems: Problems Problem Status Onset Pneumonia Acute Acute encephalopathy Acute Hypoxemia requiring supplemental oxygen Acute Pneumonia Acute Sepsis Acute Weakness of both lower extremities Acute
[2016-11-19] MEDS ORDERED: MAGNESIUM HYDROXIDE 30 ML UDCUP PO PRN (16:01)
[2016-11-19] MEDS: TEARS/DEXTRAN 70/HYPROMELLOSE 15 ML OPHT.BTL EACHEYE PRN (17:01)
[2016-11-19] MEDS: TAMSULOSIN HCL 0.4 MG CAP PO SCH (20:29)
[2016-11-20 07:42] VITALS: BP 109/69; PULSE 68; RESP 15; TEMP 98.7; O2SAT 89
[2016-11-20] MEDS: LISINOPRIL 10 MG TAB PO SCH (08:08)
[2016-11-20] MEDS: VENLAFAXINE XR 75 MG CAP PO SCH (08:09)
[2016-11-20] MEDS: AMOXICILLIN/CLAVULANATE POT 875/125 MG TAB PO SCH (08:09)
[2016-11-20] MEDS: guaiFENesin 600 MG TAB.ER PO SCH (08:09)
[2016-11-20] MEDS: VENLAFAXINE XR 150 MG CAP PO SCH (08:09)
[2016-11-20] MEDS: GABAPENTIN 100 MG CAP PO SCH (08:10)
[2016-11-20] MEDS: PANTOPRAZOLE SODIUM 40 MG TAB PO SCH (08:10)
[2016-11-20] MEDS: GABAPENTIN 400 MG CAP PO SCH (08:10)
[2016-11-20] MEDS: INSULIN LISPRO 100 UNIT/ML SC SCH ×2 (08:11→12:55)
[2016-11-20] MEDS: ENOXAPARIN 40 MG/0.4 ML SYR SC SCH (08:11)
[2016-11-20] MEDS: SENNOSIDES/DOCUSATE SODIUM TAB PO SCH (08:55)
[2016-11-20] MEDS: TEARS/DEXTRAN 70/HYPROMELLOSE 15 ML OPHT.BTL EACHEYE PRN (09:34)
--- NOTE | 2016-11-20 10:40 | PDIAF ---
- Diagnosis Diagnosis: pneumonia Code Status: Full Code - Medication Management Discharge Medications: Medications to Continue on Transfer Docusate Sodium [Colace 100 MG (*)] 100 mg PO BID PRN 05/28/15 [Last Taken 11/13 21:00] Magnesium Hydroxide [Milk of Magnesia (*)] 30 ml PO DAILY 05/28/15 [Last Taken 11/13/16] Bisacodyl [Dulcolax] 10 mg RC DAILY PRN 08/04/15 [Last Taken Unknown] LORazepam [Ativan (*)] 0.5 mg PO TID PRN 08/04/15 [Last Taken 11/13/16] Ondansetron Odt [Zofran Odt 4 mg (*)] 8 mg PO Q6H PRN 08/04/15 [Last Taken 10/31] Polyethylene Glycol 3350 [Miralax 17 gm (*)] 17 gm PO DAILY PRN 08/04/15 [Last Taken 08/04/15] Tears/Hypromellose [Natural Balance] 1 drop EACHEYE Q4 PRN 08/04/15 [Last Taken Unknown] Acetaminophen [Tylenol ES 500 mg (*)] 1,000 mg PO TID PRN 10/31/16 [Last Taken 11/12/16] Ergocalciferol [Vitamin D2 (*)] 50,000 unit PO Q30D 10/31/16 [Last Taken ] Lisinopril [Zestril 30 mg] 30 mg PO DAILY 10/31/16 [Last Taken 11/13/16] Magnesium Hydroxide [Milk of Magnesia] 30 ml PO DAILY PRN 10/31/16 [Last Taken Unknown] Omeprazole [Prilosec 20 mg] 20 mg PO DAILY 10/31/16 [Last Taken 11/13/16] Oxycodone HCl [OXYCODONE HCL] 10 mg PO TID 10/31/16 [Last Taken 11/13/16 20:00] Sennosides/Docusate Sodium [Senna-Docusate Sodium Tablet] 2 each PO BID [Last Taken 11/13/16 21:00] Tamsulosin HCl 0.4 mg PO HS 10/31/16 [Last Taken 11/13/16] Venlafaxine HCl [Venlafaxine HCl ER] 75 mg PO DAILY 10/31/16 [Last Taken ] Venlafaxine HCl [Venlafaxine HCl ER] 150 mg PO DAILY 10/31/16 [Last Taken ] guaiFENesin [Mucinex 600 MG (*)] 600 mg PO BID PRN 10/31/16 [Last Taken 11/10/16 ] metFORMIN HCL [Glucophage 850 mg (*)] 850 mg PO DAILY 10/31/16 [Last Taken 11/13] oxyCODONE IR [Oxycodone Ir (*)] 5 mg PO DAILY PRN 10/31/16 [Last Taken 11/13/16] traZODone [traZODone 150MG (*)] 150 mg PO HS 10/31/16 [Last Taken 11/13/16] Gabapentin [Neurontin 100 MG (*)] 200 mg PO TID 11/14/16 [Last Taken 11/13/16 20 :00] Gabapentin [Neurontin 400 MG (*)] 800 mg PO TID 11/14/16 [Last Taken 11/13/16 20 :00] Gluc Oxid/l-Peroxid/Muramidase [Biotene Mouthwash (*)] 10 ml MM TID PRN [Last Taken 11/10/16] Herbals/Supplements -Info Only 1 ea PO DAILY 11/14/16 [Last Taken Unknown] Amoxicillin/Clavulanate Pot [Augmentin 875 MG TAB (*)] 875 mg PO BID #8 tab [Last Taken Unknown] Ferrous Sulfate [Feosol] 325 mg PO BID #0 tablet 11/19/16 [Last Taken Unknown] Discharge Medications: Refer to the Discharge Home Medication list for PRN reason. - Orders Services needed: Home Care, Physical Therapy, Occupational Therapy, Speech Language Pathologist Home Care Face to Face: I certify that this patient was under my care and that I had the required [id number] encounter meeting the encounter requirements on the discharge day. My findings support the fact that the patient is homebound as defined in CMS Chapter 7 Medicare Benefits Manual 30.1.1, The condition of the patient is such that there exists a normal inability to leave home and consequently, leaving home would require a considerable and taxing effort. Diet Recommendation: ADA 2200 consistent carb Diet Texture: Regular Texture Diet - Follow Up Care Current Providers and Referrals: NONE *PRIMARY CARE P,. [Unknown] - As per Instructions
--- NOTE | 2016-11-20 12:19 | GDS ---
[f rep st] DISCHARGE SUMMARY DISCHARGE DIAGNOSES: 1. Acute hypoxemic respiratory failure. 2. Acute aspiration pneumonia. 3. Controlled DM 2 4. Iron deficiency anemia. 5. Deconditioning. HPI: The patient is an 81-year-old male with history of hypertension, iron- deficiency anemia and stroke, who presented from [facility] after complaining of dizziness, fevers, chills and feeling too weak to use his walker. He was recently hospitalized at [facility] with sepsis secondary to pneumonia. He was discharged on November 08, and just completed a course of Augmentin. HOSPITAL COURSE BY PROBLEM: 1. Acute aspiration pneumonia. It was thought to be aspiration pneumonia given he had several episodes of emesis prior to shortness of breath, and new infiltrate seen on x-ray. Initially treated with IV antibiotics and then was transitioned to Augmentin and completed a 7-day course of antibiotics. He is currently stable on room air. 2. Controlled diabetes. A1c was 7.6. Continue metformin. 3. Chronic iron deficiency anemia. The patient denies any active bleeding. Was started on ferrous sulfate. 4. Benign hypertension. Continue home medications. 5. Deconditioning. The patient will be discharged with PT, OT and Speech Therapy. 6. Patient is stable for discharge to [facility]. NEW MEDICATIONS: Ferrous sulfate 325 mg twice daily. /[id number]/MODL MTDD
[2016-11-20] MEDS: oxyCODONE IR 5 MG TAB PO PRN (12:54)
[2016-11-25] MEDS ORDERED: ERGOCALCIFEROL 50,000 I.UNIT CAP PO SCH (09:00)
== END 2016-11-20 13:44 | DRG 177 ==
LOC: EDUNIT# → F3N 10:52
PROVIDERS: ADMIT Hospitalist; ATTEND Hospitalist
DX: J69.0 Pneumonitis due to inhalation of food and vomit (principal); J96.01 Acute respiratory failure with hypoxia; R13.10 Dysphagia, unspecified; D50.9 Iron deficiency anemia, unspecified; I10 Essential (primary) hypertension; E11.9 Type 2 diabetes mellitus without complications; M54.5 Low back pain; Z96.653 Presence of artificial knee joint, bilateral; Z96.643 Presence of artificial hip joint, bilateral; Z86.73 Personal history of transient ischemic attack (TIA), and cerebral infarction without residual deficits
CPT/HCPCS: 87449-90; 92526-GN; 92610-GN; 97110-GP; 97116-GP; 97161-GP; 97166-GO; 97530-GO; 97535-GO; G0009; G8996-GN-CI; G8997-GN-CI; G8998-GN-CI; J0692; J1335; J1650; J1815; J1956

== ENCOUNTER → 2017-05-10 | Outpatient (CLI) | payer OTHER, MEDICAID | LOC: FIMAGING 08:17 | PROVIDERS: ATTEND Physician Assistant Medical | DX: R10.811 Right upper quadrant abdominal tenderness (principal) | CPT/HCPCS: 78227; A9537 ==

== ENCOUNTER 2017-06-03 10:02 | Emergency (ER) | payer OTHER, MEDICAID ==
[2017-06-03 10:42] LABS: % IMMATURE GRANULYOCYTES 0.5 % (0.0-1.1); ABSOLUTE IMMATURE GRANULOCYTES 0.03 10^3/uL (0.00-0.10); ADD DIFF? NO; ADD MORPH? NO; ADD SCAN? NO; ATYPICAL LYMPHOCYTE FLAG 10 (0-99); FRAGMENT RBC FLAG 0 (0-99); HEMATOCRIT 39.6 % (40.0-51.0); HEMOGLOBIN 12.8 g/dL (13.7-17.5); LEFT SHIFT FLG 0 (0-99); LIPEMIA HEMOLYSIS FLAG 80 (0-99); MEAN CELL HEMOGLOBIN CONCENTR. 32.3 g/dL (32.4-36.7); MEAN CELL VOLUME 74.2 fL (81.5-99.8); MEAN PLATELET VOLUME 9.8 fL (8.7-11.7); PLATELET CLUMPS FLAG 0 (0-99); PLATELET COUNT 205 10^3/uL (150-400); RED BLOOD CELL COUNT 5.34 10^6/uL (4.40-6.38)
--- NOTE | 2017-06-03 10:43 | EDPHY ---
H & P Time Seen by Provider: 06/03/17 10:28 HPI/ROS: Chief complaint. Abdominal pain HPI. 82-year-old male presents emergency department with right-sided abdominal pain for 3-4 weeks. No vomiting or diarrhea. He has had decreased appetite. Pain is in the right upper quadrant and radiates through to the right flank and right back. He describes it as" hot". Today he feels shaky and weak. He is it is worse with lying down and LEs with walking. He does have urinary frequency. He had an ultrasound in the last few weeks of his liver and gallbladder and these were at the upper limits of normal. He had a HIDA scan on May 10 that was normal. No chest pain or shortness of breath. ROS Constitutional. no fever/chills, no weakness Eyes. no problems with vision ENT. no sore throat, no nasal drainage Cardiovascular. no chest pain Respiratory. no shortness of breath, no cough Abdominal. Right upper quadrant abdominal pain radiating through to his back . no problems urinating MS. no calf pain/swelling, no neck/back pain, no joint pain Skin. no rash Lymph. no swollen glands Neuro. no headache, no dizziness, no difficulty walking or with speech Past Medical/Surgical History: Past medical history significant for hypertension, confusion, chronic pain, chronic anemia, CVA, laminectomy, pneumonia, sepsis, diabetes, hard of hearing Social History: , nonsmoker, no alcohol Smoking Status: Never smoked Physical Exam: General Appearance: Alert well-developed male moderate distress vital signs are stable Eyes: Pupils equal and round no pallor or injection. ENT, Mouth: Mucous membranes are moist. Respiratory: There are no retractions, lungs are clear to auscultation. Cardiovascular: Regular rate and rhythm. Gastrointestinal: Abdomen is soft with right upper quadrant tenderness. No masses. Normal bowel sounds Neurological: Awake and alert, sensory and motor exams grossly normal. Skin: Warm and dry, no rashes. Musculoskeletal: Neck is supple nontender. Extremities symmetrical, full range of motion. Psychiatric: Patient is oriented X 3, there is no agitation. Constitutional: Initial Vital Signs Temperature (C) 37.2 C 06/03/17 10:08 Heart Rate 90 06/03/17 10:08 Respiratory Rate 18 06/03/17 10:08 Blood Pressure 190/82 H 10/02/17 10:08 O2 Sat (%) 97 06/03/17 10:08 O2 Delivery Mode Room Air Allergies/Adverse Reactions: No Known Allergies Allergy (Unverified 05/27/15 02:46) Home Medications: Medication Instructions Recorded Docusate Sodium [Colace 100 MG (*)] 100 mg PO BID PRN 05/28/15 Magnesium Hydroxide [Milk of 30 ml PO DAILY 05/28/15 Magnesia (*)] Bisacodyl [Dulcolax] 10 mg RC DAILY PRN 08/04/15 LORazepam [Ativan (*)] 0.5 mg PO TID PRN 08/04/15 Ondansetron Odt [Zofran Odt 4 mg 8 mg PO Q6H PRN 08/04/15 (*)] Polyethylene Glycol 3350 [Miralax 17 gm PO DAILY PRN 08/04/15 17 gm (*)] Tears/Hypromellose [Natural 1 drop EACHEYE Q4 PRN 08/04/15 Balance] Acetaminophen [Tylenol ES 500 mg 1,000 mg PO TID PRN 10/31/16 (*)] Ergocalciferol [Vitamin D2 (*)] 50,000 unit PO Q30D 10/31/16 Lisinopril [Zestril 30 mg] 30 mg PO DAILY 10/31/16 Magnesium Hydroxide [Milk of 30 ml PO DAILY PRN 10/31/16 Magnesia] Omeprazole [Prilosec 20 mg] 20 mg PO DAILY 10/31/16 Sennosides/Docusate Sodium 2 each PO BID 10/31/16 [Senna-Docusate Sodium Tablet] Tamsulosin HCl 0.4 mg PO HS 10/31/16 Venlafaxine HCl [Venlafaxine HCl 75 mg PO DAILY 10/31/16 ER] Venlafaxine HCl [Venlafaxine HCl 150 mg PO DAILY 10/31/16 ER] guaiFENesin [Mucinex 600 MG (*)] 600 mg PO BID PRN 10/31/16 metFORMIN HCL [Glucophage 850 mg 850 mg PO DAILY 10/31/16 (*)] oxyCODONE HCL [OXYCODONE HCL] 10 mg PO TID 10/31/16 oxyCODONE IR [Oxycodone Ir (*)] 5 mg PO DAILY PRN 10/31/16 traZODone [traZODone 150MG (*)] 150 mg PO HS 10/31/16 Gabapentin [Neurontin 100 MG (*)] 200 mg PO TID 11/14/16 Gabapentin [Neurontin 400 MG (*)] 800 mg PO TID 11/14/16 Gluc Oxid/l-Peroxid/Muramidase 10 ml MM TID PRN 11/14/16 [Biotene Mouthwash (*)] Herbals/Supplements -Info Only 1 ea PO DAILY 11/14/16 Ferrous Sulfate [Feosol] 325 mg PO BID #0 tablet 11/19/16 Medical Decision Making - Diagnostics Imaging Results: Imaging Impressions Abdomen CT 06/03/17 10:58 Impression: 1. Diverticulosis without evidence for diverticulitis. No CT findings for appendicitis. Constipation. 2. Probable chronic aspiration and scarring at both lung bases, similar in appearance. 3. Other chronic findings as above. Results called and discussed with Dr. Steve Ramos on June 03, [address] abdomen and pelvis with IV contrast shows moderate to severe constipation. Diverticulosis but no diverticulitis. No kidney stone or hydronephrosis. Normal appendix. No small bowel obstruction This is reviewed by me and discussed with Dr. Monroy Procedures: Old records are reviewed IV normal saline. Morphine for pain. Zofran for nausea ED Course/Re-evaluation: Re-evaluation at 2:20 p.m. patient is stable. He and I discussed treatment plan including criteria for return importance of follow-up and further evaluation. He expresses understanding and agreement Differential Diagnosis: I considered gallbladder disease, kidney infection pyelonephritis, bowel obstruction. Also diverticulitis. Appears that the findings are consistent with constipation - Data Points Laboratory Results: Laboratory Results 06/03/17 10:26 06/03/17 10:26 06/03/17 06/03/17 06/03/17 10:26 10: 10:26 WBC RBC Hgb Hct MCV MCH MCHC RDW Plt Count MPV Neut % (Auto) Lymph % (Auto) Hunt % (Auto) Eos % (Auto) Baso % (Auto) Nucleat RBC Rel Count Absolute Neuts (auto) Absolute Lymphs (auto) Absolute Monos (auto) Absolute Eos (auto) Absolute Basos (auto) Absolute Nucleated RBC Immature Gran % Immature Gran # Sodium 132 mEq/L L mEq/L (134-144) Potassium 3.9 mEq/L mEq/L (3.5-5.2) Chloride 91 mEq/L L mEq/L (97-110) Carbon Dioxide 25 mEq/l mEq/l (22-31) Anion Gap 16 mEq/L mEq/L (8-16) BUN 7 mg/dL mg/dL (7-23) Creatinine 0.7 mg/dL mg/dL (0.7-1.3) Estimated GFR > 60 Glucose 190 mg/dL H mg/dL (70-100) Calcium 9.9 mg/dL mg/dL (8.5-10.4) Total Bilirubin 0.6 mg/dL mg/dL (0.1-1.4) Conjugated Bilirubin 0.5 mg/dL mg/dL (0.0-0.5) Unconjugated Bilirubin 0.1 mg/dL mg/dL (0.0-1.1) AST 15 IU/L L IU/L (17-59) ALT 21 IU/L IU/L (21-72) Alkaline Phosphatase 80 IU/L IU/L (38-126) Total Protein 8.4 g/dL H g/dL (6.3-8.2) Albumin 5.0 g/dL g/dL (3.5-5.0) Lipase 38 IU/L IU/L (23-300) Urine Color YELLOW Urine Appearance CLEAR Urine pH 7.0 (5.0-7.5) Ur Specific [place] 1.011 (1.002-1.030) Urine Protein NEGATIVE (NEGATIVE) Urine Ketones NEGATIVE (NEGATIVE) Urine Blood NEGATIVE (NEGATIVE) Urine Nitrate NEGATIVE (NEGATIVE) Urine Bilirubin NEGATIVE (NEGATIVE) Urine Urobilinogen NEGATIVE EU EU (0.2-1.0) Ur Leukocyte Esterase NEGATIVE (NEGATIVE) Urine RBC 5-10 /hpf H /hpf (0-3) Urine WBC NONE SEEN /hpf /hpf (0-3) Ur Epithelial Cells NONE SEEN /lpf /lpf (NONE-1+) Urine Mucus TRACE /lpf /lpf (NONE-1+) Urine Glucose 3+ H (NEGATIVE) 06/03/17 10:26 WBC 5.66 10^3/uL 10^3/uL (3.80-9.50) RBC 5.34 10^6/uL 10^6/uL (4.40-6.38) Hgb 12.8 g/dL L g/dL (13.7-17.5) Hct 39.6 % L % (40.0-51.0) MCV 74.2 fL L fL (81.5-99.8) MCH 24.0 pg L pg (27.9-34.1) MCHC 32.3 g/dL L g/dL (32.4-36.7) RDW 16.0 % H % (11.5-15.2) Plt Count 205 10^3/uL 10^3/uL (150-400) MPV 9.8 fL fL (8.7-11.7) Neut % (Auto) 75.9 % H % (39.3-74.2) Lymph % (Auto) 17.1 % % (15.0-45.0) Hunt % (Auto) 4.8 % % (4.5-13.0) Eos % (Auto) 1.2 % % (0.6-7.6) Baso % (Auto) 0.5 % % (0.3-1.7) Nucleat RBC Rel Count 0.0 % % (0.0-0.2) Absolute Neuts (auto) 4.29 10^3/uL 10^3/uL (1.70-6.50) Absolute Lymphs (auto) 0.97 10^3/uL L 10^3/uL (1.00-3.00) Absolute Monos (auto) 0.27 10^3/uL L 10^3/uL (0.30-0.80) Absolute Eos (auto) 0.07 10^3/uL 10^3/uL (0.03-0.40) Absolute Basos (auto) 0.03 10^3/uL 10^3/uL (0.02-0.10) Absolute Nucleated RBC 0.00 10^3/uL 10^3/uL (0-0.01) Immature Gran % 0.5 % % (0.0-1.1) Immature Gran # 0.03 10^3/uL 10^3/uL (0.00-0.10) Sodium Potassium Chloride Carbon Dioxide Anion Gap BUN Creatinine Estimated GFR Glucose Calcium Total Bilirubin Conjugated Bilirubin Unconjugated Bilirubin AST ALT Alkaline Phosphatase Total Protein Albumin Lipase Urine Color Urine Appearance Urine pH Ur Specific [place] Urine Protein Urine Ketones Urine Blood Urine Nitrate Urine Bilirubin Urine Urobilinogen Ur Leukocyte Esterase Urine RBC Urine WBC Ur Epithelial Cells Urine Mucus Urine Glucose Medications Given: Discontinued Medications Morphine Sulfate (Morphine) 6 mg IVP EDNOW ONE Stop: 06/03/17 10:58 Last Admin: 06/03/17 11:08 Dose: 6 mg Ondansetron HCl (Zofran) 4 mg IVP EDNOW ONE Stop: 06/03/17 10:58 Last Admin: 06/03/17 11:08 Dose: 4 mg Oxycodone HCl (Oxycodone Ir) 10 mg PO EDNOW ONE Stop: 06/03/17 13:54 Last Admin: 06/03/17 14:00 Dose: 10 mg Departure - Departure Disposition: Home, Routine, Self-Care Clinical Impression: Abdominal pain Qualifiers: Abdominal location: right upper quadrant Qualified Code(s): R10.11 - Right upper quadrant pain Condition: Good Instructions: Constipation (ED) Additional Instructions: Increased fluids including fruit and prune juice. MiraLax, khalif Colace, magnesium citrate all work for constipation. May also use milk of magnesia. Return for worsening symptoms. Recheck in 2 days if not improved Referrals: Emanuel GILLIS [Primary Care Provider] - 2-3 days, if not improved
[2017-06-03 10:57] LABS: ANION GAP 16 mEq/L (8-16); CALCIUM 9.9 mg/dL (8.5-10.4); CARBON DIOXIDE 25 mEq/l (22-31); CHLORIDE 91 mEq/L (97-110); CREATININE 0.7 mg/dL (0.7-1.3); GLOMERULAR FILTRATION RATE > 60; GLUCOSE 190 mg/dL (70-100); POTASSIUM 3.9 mEq/L (3.5-5.2); SODIUM 132 mEq/L (134-144)
[2017-06-03] MEDS ORDERED: ONDANSETRON 4 MG/2 ML VIAL IVP ONE (10:57)
[2017-06-03 11:12] LABS: COLOR YELLOW; LEUKOCYTE ESTERASE,URINE NEGATIVE (NEGATIVE); MUCUS TRACE /lpf (NONE-1+); NITRITE,URINE NEGATIVE (NEGATIVE); WBC,URINE NONE SEEN /hpf (0-3)
[2017-06-03] MEDS ORDERED: IOPAMIDOL (ISOVUE-300) 100 ML BTL ONE (11:13)
[2017-06-03 12:23] LABS: BILIRUBIN,TOTAL 0.6 mg/dL (0.1-1.4); BILIRUBIN-CONJUGATED 0.5 mg/dL (0.0-0.5); BILIRUBIN-UNCONJUGATED 0.1 mg/dL (0.0-1.1); TOTAL PROTEIN 8.4 g/dL (6.3-8.2)
[2017-06-03 13:21] VITALS: TEMP 98.4; O2SAT 94
[2017-06-03] MEDS ORDERED: oxyCODONE IR 5 MG TAB PO ONE (13:53)
[2017-06-03 14:17] VITALS: BP 138/85; PULSE 84; RESP 18
== END 2017-06-03 14:54 | disposition home or self-care (01) ==
DX: R10.11 Right upper quadrant pain (principal); I10 Essential (primary) hypertension; E11.9 Type 2 diabetes mellitus without complications; Z79.84 Long term (current) use of oral hypoglycemic drugs
CPT/HCPCS: 74177; 96374; 96375; 99285; J2405; Q9967

== ENCOUNTER 2018-05-16 20:34 | Emergency (ER) | payer OTHER, MEDICAID ==
--- NOTE | 2018-05-16 20:40 | EDPHY ---
HPI/HX/ROS/PE/MDM Narrative: CHIEF COMPLAINT: RUQ pain HPI: The patient is an 83 y/o male with a history of diabetes who arrives via EMS complaining of persistent RUQ abdominal pain for the last 3 days. He had similar symptoms previously 2-3 months ago and reports the facility performed an ultrasound that was negative. When his pain returned today he called EMS because he "didn't trust those people" at the facility to diagnosis him correctly. Today he's had some associated nausea. He has not noticed a correlation between his abdominal pain and eating. He denies blood in his stool , vomiting, fever, diarrhea, chest pain, dyspnea. REVIEW OF SYSTEMS: A comprehensive 10 system review of systems is otherwise negative aside from elements mentioned in the history of present illness. PMH: Hearing loss, diabetes, chronic pain, O2 at night SOCIAL HISTORY: Lives at [facility]. . PHYSICAL EXAM: General:Patient is alert, in no acute distress. ENT:Eyes are normal to inspection. ENT inspection normal. Neck: Normal inspection. Full range of motion. Respiratory:No respiratory distress. Breath sounds normal bilaterally. Cardiovascular: Regular rate and rhythm. Strong peripheral pulses. Normal cap refill. Abdomen:The abdomen has RLQ tenderness to palpation. There are no peritoneal signs. Back: Normal to inspection. No tenderness to palpation. Skin: Normal color. No rash. Warm and dry. Extremities: Normal appearance. Full range of motion. Neuro: Oriented x3. Normal motor function. Normal sensory function. ED Course: 83 y/o male presents with 3-day history of abdominal pain with associated nausea today. He has RLQ tenderness on exam. Plan for IV, labs, abdominal CT, and symptom management. 4mg IV morphine ordered. Abdominal CT: negative Reassessed patient and discussed findings. MDM: This patient presents with RLQ pain of unknown etiology. Workup in ED is negative. I spoke to his daughter who is at bedside and explained our findings. She said the patient has had this pain before and has had prior CTs and specialist evaluation without a good explanation. She feels it is likely the patient has worsening pain because he is weaning of oxycodone. I see no signs of appendicitis, bowel obstruction, cholecystitis, pancreatitis or pneumonia. - Data Points Imaging: Discussed imaging studies w/ call circuit worker Radiologist, I viewed and interpreted images myself Laboratory Results: Laboratory Results 09/14/18 20:40 05/16/18 05/16/18 05/16/18 20:49 20:40 20:40 WBC 5.42 10^3/uL 10^3/uL (3.80-9.50) RBC 4.97 10^6/uL 10^6/uL (4.40-6.38) Hgb 13.1 g/dL L g/dL (13.7-17.5) POC Hgb 14.3 gm/dL gm/dL (13.7-17.5) Hct 37.7 % L % (40.0-51.0) POC Hct 42 % % (40-51) MCV 75.9 fL L fL (81.5-99.8) MCH 26.4 pg L pg (27.9-34.1) MCHC 34.7 g/dL g/dL (32.4-36.7) RDW 13.4 % % (11.5-15.2) Plt Count 183 10^3/uL 10^3/uL (150-400) MPV 10.2 fL fL (8.7-11.7) Neut % (Auto) 71.0 % % (39.3-74.2) Lymph % (Auto) 19.2 % % (15.0-45.0) [place] % (Auto) 6.3 % % (4.5-13.0) Eos % (Auto) 2.4 % % (0.6-7.6) Baso % (Auto) 0.4 % % (0.3-1.7) Nucleat RBC Rel Count 0.0 % % (0.0-0.2) Absolute Neuts (auto) 3.85 10^3/uL 10^3/uL (1.70-6.50) Absolute Lymphs (auto) 1.04 10^3/uL 10^3/uL (1.00-3.00) Absolute Monos (auto) 0.34 10^3/uL 10^3/uL (0.30-0.80) Absolute Eos (auto) 0.13 10^3/uL 10^3/uL (0.03-0.40) Absolute Basos (auto) 0.02 10^3/uL 10^3/uL (0.02-0.10) Absolute Nucleated RBC 0.00 10^3/uL 10^3/uL (0-0.01) Immature Gran % 0.7 % % (0.0-1.1) Immature Gran # 0.04 10^3/uL 10^3/uL (0.00-0.10) POC Sodium 126 mEq/L L mEq/L (135-145) POC Potassium 4.1 mEq/L mEq/L (3.3-5.0) POC Chloride 88 mEq/L L mEq/L (97-110) POC BUN 16 mg/dL mg/dL (7-23) POC Creatinine 0.9 mg/dL mg/dL (0.7-1.3) POC Glucose 162 mg/dL H mg/dL (70-100) Total Bilirubin 0.4 mg/dL mg/dL (0.1-1.4) Conjugated Bilirubin 0.1 mg/dL mg/dL (0.0-0.5) Unconjugated Bilirubin 0.3 mg/dL mg/dL (0.0-1.1) AST 18 IU/L IU/L (17-59) ALT 27 IU/L IU/L (21-72) Alkaline Phosphatase 91 IU/L IU/L (38-126) Total Protein 7.0 g/dL g/dL (6.3-8.2) Albumin 4.3 g/dL g/dL (3.5-5.0) Lipase 51 IU/L IU/L (23-300) Medications Given: Discontinued Medications Morphine Sulfate (Morphine) 4 mg IVP EDNOW ONE Stop: 05/16/18 20:42 Last Admin: 05/16/18 20:51 Dose: 4 mg Point of Care Test Results: Chemistry 05/16/18 20:49 POC Sodium 126 mEq/L L mEq/L (135-145) POC Potassium 4.1 mEq/L mEq/L (3.3-5.0) POC Chloride 88 mEq/L L mEq/L (97-110) POC BUN 16 mg/dL mg/dL (7-23) POC Creatinine 0.9 mg/dL mg/dL (0.7-1.3) POC Glucose 162 mg/dL H mg/dL (70-100) ISTAT H&H 05/16/18 20:49 POC Hgb 14.3 gm/dL gm/dL (13.7-17.5) POC Hct 42 % % (40-51) General Time Seen by Provider: 05/16/18 20:38 Initial Vital Signs: Initial Vital Signs Temperature (C) 36.9 C 05/16/18 20:38 Heart Rate 90 05/16/18 20:38 Respiratory Rate 18 05/16/18 20:38 Blood Pressure 188/94 H 05/16/18 20:38 O2 Sat (%) 97 05/16/18 20:38 O2 Delivery Mode Room Air O2 (L/minute) 2 Allergies/Adverse Reactions: No Known Allergies Allergy (Unverified 05/27/15 02:46) Home Medications: Medication Instructions Recorded Docusate Sodium [Colace 100 MG (*)] 100 mg PO BID PRN 05/28/15 Magnesium Hydroxide [Milk of 30 ml PO DAILY 05/28/15 Magnesia (*)] Bisacodyl [Dulcolax] 10 mg RC DAILY PRN 08/04/15 LORazepam [Ativan (*)] 0.5 mg PO TID PRN 08/04/15 Ondansetron Odt [Zofran Odt 4 mg 8 mg PO Q6H PRN 08/04/15 (*)] Polyethylene Glycol 3350 [Miralax 17 gm PO DAILY PRN 08/04/15 17 gm (*)] Tears/Hypromellose [Natural 1 drop EACHEYE Q4 PRN 08/04/15 Balance] Acetaminophen [Tylenol ES 500 mg 1,000 mg PO TID PRN 10/31/16 (*)] Ergocalciferol [Vitamin D2 (*)] 50,000 unit PO Q30D 10/31/16 Lisinopril [Zestril 30 mg] 30 mg PO DAILY 10/31/16 Magnesium Hydroxide [Milk of 30 ml PO DAILY PRN 10/31/16 Magnesia] Omeprazole [Prilosec 20 mg] 20 mg PO DAILY 10/31/16 Sennosides/Docusate Sodium 2 each PO BID 10/31/16 [Senna-Docusate Sodium Tablet] Tamsulosin HCl 0.4 mg PO HS 10/31/16 Venlafaxine HCl [Venlafaxine HCl 75 mg PO DAILY 10/31/16 ER] Venlafaxine HCl [Venlafaxine HCl 150 mg PO DAILY 10/31/16 ER] guaiFENesin [Mucinex 600 MG (*)] 600 mg PO BID PRN 10/31/16 metFORMIN HCL [Glucophage 850 mg 850 mg PO DAILY 10/31/16 (*)] oxyCODONE HCL [OXYCODONE HCL] 10 mg PO TID 10/31/16 oxyCODONE IR [Oxycodone Ir (*)] 5 mg PO DAILY PRN 10/31/16 traZODone [traZODone 150MG (*)] 150 mg PO HS 10/31/16 Gabapentin [Neurontin 100 MG (*)] 200 mg PO TID 11/14/16 Gabapentin [Neurontin 400 MG (*)] 800 mg PO TID 11/14/16 Gluc Oxid/l-Peroxid/Muramidase 10 ml MM TID PRN 11/14/16 [Biotene Mouthwash (*)] Herbals/Supplements -Info Only 1 ea PO DAILY 11/14/16 Ferrous Sulfate [Feosol] 325 mg PO BID #0 tablet 11/19/16 Departure - Departure Disposition: Home, Routine, Self-Care Clinical Impression: Abdominal pain Qualifiers: Abdominal location: right lower quadrant Qualified Code(s): R10.31 - Right lower quadrant pain Condition: Good Instructions: Acute Abdominal Pain (ED) Additional Instructions: Follow up with your primary care provider on Saturday for unimproved symptoms. Return to the ED for severe pain, inability to have a bowel movement, blood in your stool or vomit, fever, or other worsening of condition. Referrals: Young Rouse MD [Medical Doctor] - As per Instructions Report Scribed for: Armando Dorsey Report Scribed by: Kayla Jc Date of Report: 05/16/18 Time of Report: 20:51 Physician Review and Approval Statement: Portions of this note were transcribed by an ED scribe. I personally performed the history, physical exam, and medical decision making; and confirm the accuracy of the information in the transcribed note.
[2018-05-16 20:54] LABS: PLATELET COUNT 183 10^3/uL (150-400)
[2018-05-16] MEDS ORDERED: IOPAMIDOL (ISOVUE-300) 100 ML BTL ONE (21:49)
[2018-05-16 23:06] VITALS: BP 131/84
== END 2018-05-16 23:05 | disposition home or self-care (01) ==
LOC: EDBD → EDUNIT#
DX: R10.31 Right lower quadrant pain (principal); E11.9 Type 2 diabetes mellitus without complications
CPT/HCPCS: 74177; 96374; 99285; J2270; Q9967; 82435-PO; 82565-PO; 82947-PO; 84132-PO; 84295-PO; 84520-PO; 85014-PO

== ENCOUNTER 2018-10-18 16:19 | Inpatient (IN) | payer OTHER, MEDICAID ==
--- NOTE | 2018-10-18 17:08 | EDPHY ---
H & P Time Seen by Provider: 10/18/18 16:45 HPI/ROS: Chief complaint. Dizzy, weakness HPI. Patient is an 83-year-old male here by EMS. He complains of dizziness with walking for 1 month. Both arms have felt heavy for a long time after surgery. His also has a sense of generalized weakness which is worse this afternoon. Some dizziness worse with turning his head. Recently seen by PCP and blood sugar was about 300 last week. Patient tells me no fever or cough. He tells me no chest pain, shortness of breath, abdominal pain. Nausea without vomiting or diarrhea. He tells me he has been drinking lots of water the last few days. He has a history of vertigo and had left ear surgery for the vertigo. I spoke with his daughter Michelet [phone] who tells me the patient is always weak. He he had an MRI of his back last week. They have increased his metformin last week. Increased Flonase last week for congestion. He has been doing physical therapy 3 times per week. The patient lives at [facility]. ROS 10 systems were reviewed and negative with the exception of the elements mentioned in the history of present illness Past Medical/Surgical History: Past medical history seen for diabetes, chronic pain, oxygen at night, hypertension, confusion, chronic anemia, CVA in 1979, laminectomy in 2016, pneumonia, sepsis, hard of hearing Social History: , nonsmoker, no alcohol Smoking Status: Former smoker Physical Exam: General Appearance: Alert well-developed male mild distress vital signs significant for blood pressure 175/107 Eyes: Pupils equal and round no pallor or injection. ENT, status post left ear surgery Respiratory: There are no retractions, lungs are clear to auscultation. Cardiovascular: Regular rate and rhythm. Gastrointestinal: Abdomen is soft and nontender, no masses, bowel sounds normal. Neurological: Awake and alert, sensory and motor exams grossly normal. Speech is normal. Cranial nerves are normal. There is no trauma pronator drift. [id number] and zhtd-[id number]-umml are intact bilaterally. Skin: Warm and dry, no rashes. Musculoskeletal: Neck is supple nontender. Extremities symmetrical, full range of motion. Psychiatric: Patient is oriented X 3, there is no agitation. Constitutional: Initial Vital Signs Temperature (C) 36.2 C 10/18/18 16:32 Heart Rate 76 10/18/18 16:32 Respiratory Rate 16 10/18/18 16:32 Blood Pressure 175/107 H 10/18/18 16:32 O2 Sat (%) 94 10/18/18 16:32 O2 Delivery Mode Room Air Allergies/Adverse Reactions: No Known Allergies Allergy (Unverified 05/27/15 02:46) Home Medications: Medication Instructions Recorded Docusate Sodium [Colace 100 MG (*)] 100 mg PO BID PRN 05/28/15 Magnesium Hydroxide [Milk of 30 ml PO DAILY 05/28/15 Magnesia (*)] Bisacodyl [Dulcolax] 10 mg RC DAILY PRN 08/04/15 LORazepam [Ativan (*)] 0.5 mg PO TID PRN 08/04/15 Ondansetron Odt [Zofran Odt 4 mg 8 mg PO Q6H PRN 08/04/15 (*)] Polyethylene Glycol 3350 [Miralax 17 gm PO DAILY PRN 08/04/15 17 gm (*)] Tears/Hypromellose [Natural 1 drop EACHEYE Q4 PRN 08/04/15 Balance] Acetaminophen [Tylenol ES 500 mg 1,000 mg PO TID PRN 10/31/16 (*)] Ergocalciferol [Vitamin D2 (*)] 50,000 unit PO Q30D 10/31/16 Lisinopril [Zestril 30 mg] 30 mg PO DAILY 10/31/16 Magnesium Hydroxide [Milk of 30 ml PO DAILY PRN 10/31/16 Magnesia] Omeprazole [Prilosec 20 mg] 20 mg PO DAILY 10/31/16 Sennosides/Docusate Sodium 2 each PO BID 10/31/16 [Senna-Docusate Sodium Tablet] Tamsulosin HCl 0.4 mg PO HS 10/31/16 Venlafaxine HCl [Venlafaxine HCl 75 mg PO DAILY 10/31/16 ER] Venlafaxine HCl [Venlafaxine HCl 150 mg PO DAILY 10/31/16 ER] guaiFENesin [Mucinex 600 MG (*)] 600 mg PO BID PRN 10/31/16 metFORMIN HCL [Glucophage 850 mg 850 mg PO DAILY 10/31/16 (*)] oxyCODONE HCL [OXYCODONE HCL] 10 mg PO TID 10/31/16 oxyCODONE IR [Oxycodone Ir (*)] 5 mg PO DAILY PRN 10/31/16 traZODone [traZODone 150MG (*)] 150 mg PO HS 10/31/16 Gabapentin [Neurontin 100 MG (*)] 200 mg PO TID 11/14/16 Gabapentin [Neurontin 400 MG (*)] 800 mg PO TID 11/14/16 Gluc Oxid/l-Peroxid/Muramidase 10 ml MM TID PRN 11/14/16 [Biotene Mouthwash (*)] Herbals/Supplements -Info Only 1 ea PO DAILY 11/14/16 Ferrous Sulfate [Feosol] 325 mg PO BID #0 tablet 11/19/16 Medical Decision Making - Diagnostics EKG Interpretation: EKG interpreted by me shows normal sinus rhythm normal interval and axis. There is a right bundle branch block present. QRS is otherwise normal no significant ST elevation or depression. Rate is 87. No significant change from previous EKG October 2016 Procedures: Old records are reviewed ED Course/Re-evaluation: Patient has hyponatremia. He and I discussed laboratory an EKG evaluation. We discussed treatment plan including recommendation for admission. He expresses understanding and agreement. I also spoke with his daughter again who agrees with treatment plan I consulted discussed case Dr. Chacko, hospitalist, who agrees to the admission Differential Diagnosis: Many chronic medical problems that do not seem to be acute. He has fairly significant hyponatremia. No evidence for acute coronary syndrome. - Data Points Laboratory Results: Laboratory Results 10/18/18 16:30 10/18/18 16:30 10/18/18 10/18/18 10/18/18 16:32 16:30 16:30 WBC 4.66 10^3/uL 10^3/uL (3.80-9.50) RBC 4.64 10^6/uL 10^6/uL (4.40-6.38) Hgb 11.8 g/dL L g/dL (13.7-17.5) Hct 36.3 % L % (40.0-51.0) MCV 78.2 fL L fL (81.5-99.8) MCH 25.4 pg L pg (27.9-34.1) MCHC 32.5 g/dL g/dL (32.4-36.7) RDW 13.9 % % (11.5-15.2) Plt Count 207 10^3/uL 10^3/uL (150-400) MPV 9.9 fL fL (8.7-11.7) Neut % (Auto) 66.2 % % (39.3-74.2) Lymph % (Auto) 22.5 % % (15.0-45.0) [place] % (Auto) 8.8 % % (4.5-13.0) Eos % (Auto) 2.1 % % (0.6-7.6) Baso % (Auto) 0.2 % L % (0.3-1.7) Nucleat RBC Rel Count 0.0 % % (0.0-0.2) Absolute Neuts (auto) 3.08 10^3/uL 10^3/uL (1.70-6.50) Absolute Lymphs (auto) 1.05 10^3/uL 10^3/uL (1.00-3.00) Absolute Monos (auto) 0.41 10^3/uL 10^3/uL (0.30-0.80) Absolute Eos (auto) 0.10 10^3/uL 10^3/uL (0.03-0.40) Absolute Basos (auto) 0.01 10^3/uL L 10^3/uL (0.02-0.10) Absolute Nucleated RBC 0.00 10^3/uL 10^3/uL (0-0.01) Immature Gran % 0.2 % % (0.0-1.1) Immature Gran # 0.01 10^3/uL 10^3/uL (0.00-0.10) Sodium 125 mEq/L L mEq/L (135-145) Potassium 5.0 mEq/L mEq/L (3.5-5.2) Chloride 92 mEq/L L mEq/L (97-110) Carbon Dioxide 24 mEq/l mEq/l (22-31) Anion Gap 9 mEq/L mEq/L (6-14) BUN 16 mg/dL mg/dL (7-23) Creatinine 0.8 mg/dL mg/dL (0.7-1.3) Estimated GFR > 60 Glucose 114 mg/dL H mg/dL (70-100) Calcium 9.2 mg/dL mg/dL (8.5-10.4) POC Troponin I 0.04 ng/mL ng/mL (0.00-0.08) Point of Care Test Results: Chemistry 10/18/18 16:32 POC Troponin I 0.04 ng/mL ng/mL (0.00-0.08) Departure - Departure Disposition: [facility] Inpatient Acute Clinical Impression: Hyponatremia Condition: Fair Referrals: Patient,NotPresent [Unknown] - As per Instructions
--- NOTE | 2018-10-18 17:08 | CPEKG ---
Test Reason : OPEN Blood Pressure : / mmHG Vent. Rate : 087 BPM Atrial Rate : 088 BPM P-R Int : 208 ms QRS Dur : 143 ms QT Int : 391 ms P-R-T Axes : 046 026 -03 degrees QTc Int : 471 ms Sinus rhythm Right bundle branch block Confirmed by Steve Ramos ([id number]) on 10/18/2018 5:07:52 PM Referred By: PHYSICIAN ED Confirmed By:Steve Ramos
[2018-10-18 17:42] LABS: PLATELET COUNT 207 10^3/uL (150-400)
[2018-10-18] MEDS ORDERED: ONDANSETRON 4 MG/2 ML VIAL IVP PRN (20:21)
[2018-10-18] MEDS ORDERED: hydrALAZINE 20 MG/ML VIAL IVP PRN (20:27)
[2018-10-18] MEDS: TAMSULOSIN HCL 0.4 MG CAP PO SCH (21:19)
[2018-10-18] MEDS: GABAPENTIN 300 MG CAP PO SCH (21:19)
[2018-10-18] MEDS: LORazepam 0.5 MG TAB PO PRN (21:19)
[2018-10-18] MEDS: traZODone 100 MG TAB PO SCH (21:20)
[2018-10-18] MEDS: SENNOSIDES/DOCUSATE SODIUM TAB PO SCH (21:20)
[2018-10-18] MEDS: guaiFENesin 600 MG TAB.ER PO SCH (21:20)
[2018-10-18] MEDS: oxyCODONE IR 5 MG TAB PO SCH (21:21)
[2018-10-18] MEDS: NS 1,000 ML IV SCH (21:21)
--- NOTE | 2018-10-18 22:45 | GHP ---
[f rep st] HISTORY AND PHYSICAL DATE OF ADMISSION: 10/18/2018 CHIEF COMPLAINT: Weakness. HISTORY: The patient is an 83-year-old male who has had decreased balance and weakness for the last couple months, but it got much more severe today, prompting him to come to the emergency room. He de scribes balance issues and dizziness, although denies that it is anything like his previous chronic v ertigo, which was more of a room spinning. This is more like a feeling like he is going to fall. He feels very flushed. He is drinking greater than 1 gallon of water per day because his nurse [facility] [place] at [facility] told him "to drink lots of water." PAST MEDICAL HISTORY: 1. Diabetes type 2. 2. Stroke. 3. Recurrent aspiration pneumonia. 4. Spinal stenosis with continuous narcotic dependency. 5. Chronic vertigo with ear implant. 6. Hypertension. 7. GERD. 8. Depression, anxiety, and panic. MEDICATIONS: Please see computerized record for full detailed list. ALLERGIES: No known drug allergies. SOCIAL HISTORY: No smoking. No alcohol. He lives at [facility]. REVIEW OF SYSTEMS: Complete review of systems obtained. Review of systems negative regarding consti tutional, HEENT, GI, pulmonary, cardiovascular, , hematology, skin, musculoskeletal, endocrine, psy ch, except for positives as in HPI. FAMILY HISTORY: Reviewed, noncontributory to presenting complaint. PHYSICAL EXAMINATION: GENERAL: Well-developed, well-nourished male, in no distress. VITAL SIGNS: Temperature 36.2, pulse 76, blood pressure 175/107, satting 94% on room air. EYES: Normal conjuncti vae. Pupils equal, round, react to light. ENT: Normal ears and nose. Hearing intact. Normal teet h. Oropharynx moist. NECK: Trachea midline. No thyromegaly. CHEST: Normal respiratory effort. Lungs are clear to auscultation bilaterally. CARDIOVASCULAR: Regular rate and rhythm. No murmur. No lower extremity edema. ABDOMEN: Soft, nontender. No hepatosplenomegaly. SKIN: Warm, dry, inta ct. No rash. MUSCULOSKELETAL: No cyanosis or clubbing. Strength 5/5 upper and lower extremities. NEUROLOGIC: Cranial nerves intact. Normal sensation to light touch. PSYCHOSOCIAL: Alert and orie nted x3. Normal affect. Normal judgment. Normal memory. LABORATORY DATA: White count 4.66, hematocrit 36.3, platelets 207. Sodium 125, potassium 5.0, chlor tyron 92, bicarb 24. BUN 16, creatinine 0.8. Glucose 114. Troponins negative. EKG viewed by me. My personal interpretation is normal sinus rhythm, right bundle branch block, no i schemic changes. MEDICAL RECORD REVIEW: I reviewed previous hospitalizations. Most of them were for episodes of aspi ration pneumonia. ASSESSMENT/PLAN: 1. Hyponatremia. 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 I will check urine sodium and osmolality. Will hydrate gently overnight with normal saline. Would consider a fluid restriction based on response to IV fluid and the results of t he urine studies. We will check a TSH and cortisol in the morning. 2. Hypertension. Continue lisinopril. 3. Chronic low back pain with continuous narcotic dependency. Continue oxycodone at home doses. 4. Diabetes type 2. Continue metformin. 5. Chronic vertigo with some type of ear implant. He denies the current dizziness is a vertigo sens ation. CODE STATUS: Full. ADMISSION STATUS: 1. Will admit to observation. Reevaluate tomorrow for ongoing need for hospitalization. 2. DVT prophylaxis: He is high risk. Will place him on subcu Lovenox. /[id number]/MODL
[2018-10-19] MEDS ORDERED: COSYNTROPIN 0.25 MG/2 ML SYRINGE IVP ONE (06:00)
[2018-10-19] MEDS: LORazepam 0.5 MG TAB PO PRN ×3 (06:18→18:04)
[2018-10-19] MEDS: NS 1,000 ML IV SCH (07:57)
[2018-10-19] MEDS ORDERED: ACETAMINOPHEN 500 MG TAB PO PRN (08:00)
[2018-10-19] MEDS: POLYETHYLENE GLYCOL 3350 17 GM PKT PO SCH (08:12)
[2018-10-19] MEDS: ENOXAPARIN 40 MG/0.4 ML SYR SC SCH (08:13)
[2018-10-19] MEDS: FLUTICASONE NASAL 120 SPRAYS/16 GM MDI EACHNARE SCH (08:18)
[2018-10-19] MEDS: TEARS/DEXTRAN 70/HYPROMELLOSE 15 ML OPHT.BTL EACHEYE PRN (08:18)
[2018-10-19] MEDS: metFORMIN SR 500 MG TAB PO SCH (08:21)
[2018-10-19] MEDS: LISINOPRIL 20 MG TAB PO SCH (08:22)
[2018-10-19] MEDS: oxyCODONE IR 5 MG TAB PO SCH ×2 (08:22→20:05)
[2018-10-19] MEDS: GABAPENTIN 300 MG CAP PO SCH ×2 (08:22→20:04)
[2018-10-19] MEDS: SENNOSIDES/DOCUSATE SODIUM TAB PO SCH ×2 (08:22→20:06)
[2018-10-19] MEDS: PANTOPRAZOLE SODIUM 40 MG TAB PO SCH (08:23)
[2018-10-19] MEDS: DULoxetine 60 MG CAP PO SCH (08:23)
[2018-10-19] MEDS: guaiFENesin 600 MG TAB.ER PO SCH ×2 (08:23→20:05)
[2018-10-19] MEDS ORDERED: DIGOXIN 250 MCG TAB PO ONE (08:58)
[2018-10-19] MEDS ORDERED: METOPROLOL TARTRATE 50 MG TAB PO SCH (09:00)
--- NOTE | 2018-10-19 09:37 | HOSPPROG ---
Hospitalist Progress Note Assessment/Plan: DIAGNOSES: * Acute hyponatremia, urine sodium and osmoles suggest SIADH; exam approximately euvolemic -was admitted here 2014 with hyponatremia; we have no sodium numbers since that time in our system -some improvement in sodium overnight here * Acute gait instability/imbalance/failure to thrive due to above; suspect low sodium is aggravating his chronic vertigo * Iron deficiency anemia, chronic -states this is chronic and he had endoscopic workup done perhaps 10 years ago in [place]; states was told to take iron supplements but has not done so -review of labs here shows that he is chronically having microcytic anemia present * Chronic low back pain on oxycodone and gabapentin at home, * Diabetes mellitus type 2 on metformin -sugars in good control at this point * Chronic vertigo * Chronic hypertension, some high blood pressures here so far despite his usual lisinopril * Severe chronic hearing loss * Previous history of stroke * History of recurrent aspiration pneumonias PLANS: * Will stop IV fluids at this point and start oral fluid restriction * Will give oral salt supplements if necessary * Physical occupational therapy, fall risk precautions * DVT prophylaxis * Continue his usual diabetes care for the time being and monitor * Continues usual pain medicines and monitor * Follow blood pressures and consider adjusting medication as necessary * Will give some intravenous iron here and begin oral iron supplements on discharge * Will have him visit with primary care physician to review the timing and results of his last endoscopic workup, consider whether this should be done again SUBJECTIVE: Feels better today overall, but has not tried to get up out of bed yet Is hungry, just about to eat breakfast No particular problems overnight otherwise OBJECTIVE Vitals reviewed: Some hypertension here overnight better this morning, vitals otherwise stable without fever [employer], my review: Exam: alert oriented relaxed skin warm dry color ok resps not labored lungs clear BSs heart regular abd soft nondistended nontender, bowel sounds present limbs warm, no edema iv site ok Lab data: Sodium better at 129 Otherwise stable metabolic panel Ferritin is low at 12 Objective: Vital Signs Temp Pulse Resp BP Pulse Ox 36.4 C 77 18 148/80 H 99 10/19/18 07:51 10/19/18 07:51 10/19/18 07:51 10/19/18 07:51 10/19/18 07:51 Laboratory Results 10/19/18 04:33 10/18/18 10/19/18 10/20/18 06:59 06:59 06:59 Intake Total 1160 Output Total 1650 250 Balance -490 -250 - Time Spent With Patient Time Spent with Patient: greater than 35 minutes Time Spent with Patient: Greater than 35 minutes spent on this patients care, greater than 50% of time spent counseling, educating, and coordinating care regarding the above mentioned plan. ICD10 Worksheet Patient Problems: Problems Problem Status Onset Hyponatremia Acute Acute encephalopathy Acute Hypoxemia requiring supplemental oxygen Acute Pneumonia Acute Pneumonia Acute Sepsis Acute Weakness of both lower extremities Acute
[2018-10-19] MEDS: SODIUM FERRIC GLUCONAT/SUCROSE 125 MG in NS 100 ML IV SCH (10:17)
--- NOTE | 2018-10-19 11:06 | ASMTCMCOM ---
CM Note CM Note Notes: Reviewed chart. Pt presented to the Emergency Department with decreased balance and increased dizziness. History includes diabetes type 2, recurrent aspiration PNA, spinal stenosis with chronic narcotic dependency, chronic vertigo with an ear implant, HTN, GERD, depression, and anxiety. Pt lives at [facility] in Assisted Living. Discharge needs remain unclear at this time. No therapy evals. CM will continue to follow. Discharge Plan: To be determined Date Signed: 10/19/2018 11:06 AM Electronically Signed By:Ursula Ely RN
[2018-10-19] MEDS ORDERED: metFORMIN SR 500 MG TAB PO SCH (17:00)
[2018-10-19] MEDS: TAMSULOSIN HCL 0.4 MG CAP PO SCH (20:04)
[2018-10-19] MEDS: traZODone 100 MG TAB PO SCH (20:05)
[2018-10-20 04:46] LABS: PLATELET COUNT 188 10^3/uL (150-400)
[2018-10-20] MEDS: oxyCODONE IR 5 MG TAB PO SCH ×2 (08:09→20:36)
[2018-10-20] MEDS: LISINOPRIL 20 MG TAB PO SCH (08:11)
[2018-10-20] MEDS: PANTOPRAZOLE SODIUM 40 MG TAB PO SCH (08:11)
[2018-10-20] MEDS: guaiFENesin 600 MG TAB.ER PO SCH ×2 (08:12→20:36)
[2018-10-20] MEDS: DULoxetine 60 MG CAP PO SCH (08:13)
[2018-10-20] MEDS: metFORMIN SR 500 MG TAB PO SCH (08:13)
[2018-10-20] MEDS: SENNOSIDES/DOCUSATE SODIUM TAB PO SCH ×2 (08:13→20:36)
[2018-10-20] MEDS: GABAPENTIN 300 MG CAP PO SCH ×2 (08:13→20:37)
[2018-10-20] MEDS: POLYETHYLENE GLYCOL 3350 17 GM PKT PO SCH (08:13)
[2018-10-20] MEDS: ENOXAPARIN 40 MG/0.4 ML SYR SC SCH (08:14)
[2018-10-20] MEDS: FLUTICASONE NASAL 120 SPRAYS/16 GM MDI EACHNARE SCH (08:30)
[2018-10-20] MEDS: LORazepam 0.5 MG TAB PO PRN ×2 (08:31→20:36)
[2018-10-20] MEDS: TEARS/DEXTRAN 70/HYPROMELLOSE 15 ML OPHT.BTL EACHEYE PRN (09:29)
[2018-10-20] MEDS: SODIUM FERRIC GLUCONAT/SUCROSE 125 MG in NS 100 ML IV SCH (09:29)
[2018-10-20] MEDS ORDERED: IOHEXOL 300 mgI/ML (OMNIPAQUE) 150 ML BTL IV ONE (09:40)
--- NOTE | 2018-10-20 13:27 | PDMN ---
Medical Necessity Medical necessity: Change to inpt as of 10/19/18 @ 21:03, meets inpt criteria per MD order and MCG M-152, dizziness. 83 y/o w/increasing dizziness and weakness admitted w/acute hyponatremia (Na 125) and gait instability/imbalance/ FTT. Upgraded to inpt for persistently low sodium, although slightly improved at 129- needs to be monitored further and management of gait instability, PT/ OT. Est LOS>2MN for ongoing eval/management of above.
[2018-10-20] MEDS ORDERED: ONDANSETRON DISINTEGRATING 4 MG TAB PO PRN (14:16)
--- NOTE | 2018-10-20 15:42 | ASMTCMCOM ---
CM Note CM Note Notes: PT/OT are recommending home health care for the patient. Isaac would really like some help with his balance and transfers and home safety. He agrees to [facility] and they have stated they can take the patient when he is ready for d/c. [facility] confirmed they do not have home care services.A referral has been made to [facility]. CM will follow. Date Signed: 10/20/2018 03:40 PM Electronically Signed By:Nay Bautista LCSW
[2018-10-20] MEDS ORDERED: SODIUM CHLORIDE 1,000 MG TAB PO ONE ×2 (16:43→19:00)
--- NOTE | 2018-10-20 16:48 | HOSPPROG ---
Hospitalist Progress Note Assessment/Plan: DIAGNOSES: * Acute hyponatremia, urine sodium and osmoles suggest SIADH; exam approximately euvolemic -was admitted here 2015 with mild hyponatremia; several sodiums in 2016,2017 normal, we have no sodium numbers since that time in our system -sodium unchanged overnight on oral fluid restriction * Acute gait instability/imbalance/failure to thrive due to above; suspect low sodium is aggravating his chronic vertigo * Iron deficiency anemia, chronic -this is chronic for decades and he had endoscopic workup done perhaps 10 years ago in [place]; -lab numbers stable from 2017 -he has declined to take po supplements due to chronic constipation * Chronic low back pain on oxycodone and gabapentin at home, stable * Diabetes mellitus type 2 on metformin -sugars in good control at this point * Chronic vertigo * Chronic hypertension, some high blood pressures here so far despite his usual lisinopril * Severe chronic hearing loss * Previous history of stroke * History of recurrent aspiration pneumonias Overall he feels and looks much better today, eating better and ambulating better by this afternoon PLANS: * continue oral fluid restriction * Will give oral salt supplements at this time * Physical occupational therapy, fall risk precautions * DVT prophylaxis * Continue his usual diabetes care for the time being and monitor * Continue usual pain medicines and monitor * Follow blood pressures and consider adjusting medication as necessary * continue intravenous iron here; as outpt he will need to either take po supplements and miralax or similar, or arrange for periodic IV infusions * ongoing discharge planning making good progress 2 visits with patient today I have reviewed all of above with his daughter today. She had a number of very good questions which I was able to answer for her SUBJECTIVE: feels much better today, states feels 100% at normal eating much better w better appetite. stronger. has not been out of bed at time of my exam (9:00 am) no new sxs slept ok OBJECTIVE Vitals reviewed: all normal withouCardiac Monitor, my review: Exam: alert oriented relaxed skin warm dry color ok no jugular distension resps not labored lungs clear BSs heart regular abd soft nondistended nontender, bowel sounds present limbs warm, no edema iv site ok Lab data: Sodium stable at 128,129 Otherwise stable metabolic panel Ferritin is low at 12 Imaging: I reviewed images from today's CT heat w/wo contrast. There is a partially empty sella with no mass or associated skeletol abnnormality. The is some age typical atrophy. Objective: Vital Signs Temp Pulse Resp BP Pulse Ox 37.3 C 78 18 138/79 H 94 10/20/18 15:11 10/20/18 15:11 10/20/18 15:11 10/20/18 15:11 10/20/18 15:11 Laboratory Results 10/20/18 04:18 10/20/18 13:56 10/19/18 10/20/18 10/21/18 06:59 06:59 06:59 Intake Total 1530 Output Total 950 Balance 580 - Time Spent With Patient Time Spent with Patient: greater than 35 minutes Time Spent with Patient: Greater than 35 minutes spent on this patients care, greater than 50% of time spent counseling, educating, and coordinating care regarding the above mentioned plan. ICD10 Worksheet Patient Problems: Problems Problem Status Onset Hyponatremia Acute Acute encephalopathy Acute Hypoxemia requiring supplemental oxygen Acute Pneumonia Acute Pneumonia Acute Sepsis Acute Weakness of both lower extremities Acute
[2018-10-20] MEDS: traZODone 100 MG TAB PO SCH (20:36)
[2018-10-20] MEDS: TAMSULOSIN HCL 0.4 MG CAP PO SCH (20:36)
[2018-10-21] MEDS: oxyCODONE IR 5 MG TAB PO SCH (08:02)
[2018-10-21] MEDS: LORazepam 0.5 MG TAB PO PRN (08:02)
[2018-10-21] MEDS: PANTOPRAZOLE SODIUM 40 MG TAB PO SCH (08:04)
[2018-10-21] MEDS: GABAPENTIN 300 MG CAP PO SCH (08:04)
[2018-10-21] MEDS: DULoxetine 60 MG CAP PO SCH (08:04)
[2018-10-21] MEDS: SENNOSIDES/DOCUSATE SODIUM TAB PO SCH (08:05)
[2018-10-21] MEDS: ENOXAPARIN 40 MG/0.4 ML SYR SC SCH (08:05)
[2018-10-21] MEDS: POLYETHYLENE GLYCOL 3350 17 GM PKT PO SCH (08:05)
[2018-10-21] MEDS: guaiFENesin 600 MG TAB.ER PO SCH (08:05)
[2018-10-21] MEDS: LISINOPRIL 20 MG TAB PO SCH (08:14)
[2018-10-21] MEDS: FLUTICASONE NASAL 120 SPRAYS/16 GM MDI EACHNARE SCH (08:16)
[2018-10-21] MEDS: TEARS/DEXTRAN 70/HYPROMELLOSE 15 ML OPHT.BTL EACHEYE PRN (08:17)
[2018-10-21] MEDS: SODIUM FERRIC GLUCONAT/SUCROSE 125 MG in NS 100 ML IV SCH (09:32)
--- NOTE | 2018-10-21 10:11 | PDIAF ---
- Diagnosis Diagnosis: SIADH, gait instability, Fe Deficiency, DM2, Back Pain Code Status: Full Code - Medication Management Additional Medication Instructions: Do not give Metformen doses until 10/22 because of IV contrast given while in hospital. Discharge Medications: electronically signed and located in the Home Medication List. - Orders Services needed: Physical Therapy, Occupational Therapy Isolation Type: None Diet Recommendation: fluid restriction (use comment for amount) (1500 ml/24 hours total fluid maxium) - Labs/Radiology BMP Date: 10/23/18 (also 10/30) CBC w/diff Date: 11/21/18 Other Lab Name, Date and Time: Ferritin 11/21/18 - Follow Up Care Current Providers and Referrals: Patient,NotPresent [Unknown] - As per Instructions
--- NOTE | 2018-10-21 10:21 | PDDCSUM ---
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 * Acute gait instability and failure to thrive due to above * Iron deficiency anemia, chronic but untreated and uncontrolled * Chronic low back pain unchanged without radicular or neuropathic component * Diabetes mellitus type 2 * Chronic vertigo * Chronic hypertension * Previous history of stroke * Previous history of aspiration pneumonias, no evidence of aspiration here at this time PROCEDURES: CT scan of head with and without contrast unremarkable other than expected age- related changes HOSPITAL COURSE SUMMARY: This patient came to the hospital with complaints of generalized weakness and loss of balance without any more focal neurologic symptoms. He was found to have some hyponatremia at 125. He does have some chronic vertigo but did not have vertigo per se at this time. At the time of admission he mentioned that he drank a lot of water, however his urine sodium was more consistent with SIADH than with water intoxication. Patient was treated here with oral fluid restriction and some sodium supplement and his sodium has come up to 130. This has led to a complete resolution of his presenting symptoms and he is now up and ambulating without any difficulty. The cause of SIADH is uncertain. He has a chest x-ray that is fairly unremarkable and CT scan of head which shows no indication of a cause for SIADH or other acute abnormality. The CT was done with and without contrast. At this point appears stable for discharge to home. Because of the gait instability issues we have arranged for some outpatient physical therapy in his apartment. He will need ongoing monitoring of his sodium levels to make sure they stay in reasonable range. I have ordered testing for later this week and for next week. In addition, he has chronic iron deficiency anemia that has been present apparently for decades. He has had previous GI workups that were negative. He is iron deficient and anemic at this time. Iron replacement therapy has been recommended for him but he has been unable to tolerate it due to constipation in the past. Here we have given him 3 doses of intravenous iron. It is recommended that he have intermittent testing of his blood count and ferritin levels. I have ordered a CBC and ferritin for 1 month from now. As he is unable to tolerate oral iron replacements historically, it would be reasonable to make arrangements for him to have outpatient iron infusions intermittently as needed. PENDING TEST RESULTS: None MEDICATION CHANGES: None FOLLOW-UP PLAN: He will continue under the care of the geriatric group that visits him at [facility] We have arranged for some home care for physical occupational therapy in his apartment at [facility] I have ordered repeat sodium levels for 2 days from now and 1 week following that, as well as a repeat CBC and ferritin in 1 month Greater than 35 minutes bedside and care coordination time today
[2018-10-21 12:38] VITALS: BP 124/75
--- NOTE | 2018-10-21 13:29 | ASMTLACE ---
JIMMIE Length of stay for Answers: 2 days current admission Acuity / Level of Answers: Yes Care: Did the patient have an inpatient admission? Comorbidities - select Answers: Cerebrovascular disease all that apply (CVA, TIA, aneurysms, vasc ular dementia) Diabetes (uncontrolled or controlled) Opioid dependence / Chronic pain Other Notes: chronic pain, HTN, chronic vertigo with ear implan t # of Emergency department Answers: 1-2 visits in the last 6 months Social determinants Answers: Mental health diagnosis (anxiety, depression, pers onality disorders, etc.) Score: 16 Date Signed: 10/21/2018 01:29 PM Electronically Signed By:Nay Bautista LCSW
--- NOTE | 2018-10-21 14:32 | ASMTDCNOTE ---
Case Management Discharge Discharge Order Complete? Answers: Yes Patient to Obtain Answers: Independently Medications Transportation Arranged Answers: Other Notes: [facility] Medical arrange d by daughter Transport will Pick (Date 10/21/2018 12:00 AM & Time) Case Management Transport Answers: Yes Notes: face sheet for [employer] Form Complete Medical Faxed Final Orders Answers: Yes Notes: [facility]/ [facility] Agency/Facility Transfer Answers: Yes Notes: [facility] Report Printed & Faxed to Receiving Agency Family Notified Answers: Yes Notes: daughterElisa Discharge Comments Notes: Patient is d/cing back to [facility] today with [facility] for PT/OT and follow up labs. Patient's daughter Elisa has been notified and she arranged his transport with [employer] for 2:15 PM today. Elisa is concerned about the weather and does not want him traveling late afternoon. Discharge summaries were faxed to [facility] [phone]. They do not have [employer]. Left a phone message for Denisa aSnchez, the contact at [facility]. [facility] was notified.No further needs. Date Signed: 10/21/2018 02:31 PM Electronically Signed By:Nay Bautista LCSW
--- NOTE | 2018-10-21 14:32 | ASDISCHSUM ---
Discharge Information Plan Status:Home with Home Health Medically Cleared to Leave:10/20/2018 Discharge Date:10/21/2018 02:13 PM CM D/C Disposition:Home Health Service ADT D/C Disposition:Home Health Service Projected Discharge Date:10/21/2018 11:00 AM Transportation at D/C:Medicaid Transportation Discharge Delay Reason: Follow-Up Date:10/21/2018 11:00 AM Discharge Slot:2 - 12:01 pm - 18:00 pm Final Diagnosis:SIADH, DM2, Fe Deficiency Placement Information Referral Type:*Home Health Care Services Referral ID:[id number] Provider Name:[facility] Care Address 1:[address] Address 2: City:[place] Selection Factors: State:[place] Patient Contact Information Contact Name:DOMINGO Relationship:Granddaughter Address:[address] [place] [address] City:[place] Alternate Phone: State/Zip Code:[place] [address] Email: Financial Information Financial Class:Medicare Advantage Plans Primary Plan Desc:[employer] GOLD MEDICARE Primary Plan Number:[id number] Secondary Plan Desc:MEDICAID [facility] Secondary Plan Number:[id number] Assessment Information LACE LACE Length of stay for Answers: 2 days current admission Acuity / Level of Answers: Yes Care: Did the patient have an inpatient admission? Comorbidities - select Answers: Cerebrovascular disease all that apply (CVA, TIA, aneurysms, vasc ular dementia) Diabetes (uncontrolled or controlled) Opioid dependence / Chronic pain Other Notes: chronic pain, HTN, chronic vertigo with ear implan t # of Emergency department Answers: 1-2 visits in the last 6 months Social determinants Answers: Mental health diagnosis (anxiety, depression, pers onality disorders, etc.) Score: 16 Date Signed: 10/21/2018 01:29 PM Electronically Signed By:Nay Bautista LCSW [facility] Progress Note CM Note CM Note Notes: Reviewed chart. Pt presented to the Emergency Department with decreased balance and increased dizziness. History includes diabetes type 2, recurrent aspiration PNA, spinal stenosis with chronic narcotic dependency, chronic vertigo with an ear implant, HTN, GERD, depression, and anxiety. Pt lives at [facility] in Assisted Living. Discharge needs remain unclear at this time. No therapy evals. CM will continue to follow. Discharge Plan: To be determined Date Signed: 10/19/2018 11:06 AM Electronically Signed By:Ursula Ely RN [facility] CM Progress Note CM Note CM Note Notes: PT/OT are recommending home health care for the patient. Isaac would really like some help with his balance and transfers and home safety. He agrees to [facility] and they have stated they can take the patient when he is ready for d/c. [facility] confirmed they do not have home care services.A referral has been made to [facility]. CM will follow. Date Signed: 10/20/2018 03:40 PM Electronically Signed By:Nay Bautista LCSW Case Management Discharge Plan Note Case Management Discharge Discharge Order Complete? Answers: Yes Patient to Obtain Answers: Independently Medications Transportation Arranged Answers: Other Notes: [facility] Medical arrange d by daughter Transport will Pick (Date 10/21/2018 12:00 AM & Time) Case Management Transport Answers: Yes Notes: face sheet for [employer] Form Complete Medical Faxed Final Orders Answers: Yes Notes: [facility]/ [facility] Agency/Facility Transfer Answers: Yes Notes: [facility] Report Printed & Faxed to Receiving Agency Family Notified Answers: Yes Notes: daughterElisa Discharge Comments Notes: Patient is d/cing back to [facility] today with [facility] for PT/OT and follow up labs. Patient's daughter Elisa has been notified and she arranged his transport with [employer] for 2:15 PM today. Elisa is concerned about the weather and does not want him traveling late afternoon. Discharge summaries were faxed to [facility] [phone]. They do not have [employer]. Left a phone message for Denisa Sanchez, the contact at [facility]. [facility] was notified.No further needs. Date Signed: 10/21/2018 02:31 PM Electronically Signed By:Nay Bautista LCSW Intervention Information Intervention Type:*Incorrect Registration Date of Service:10/19/2018 11:11 AM Patient Type:Inpatient Staff Member:PAVEL Berumen, Eugenie Hours: Discipline: Severity: Comment:
--- NOTE | 2018-10-22 15:00 | CPEKG ---
Test Reason : Blood Pressure : / mmHG Vent. Rate : 078 BPM Atrial Rate : 078 BPM P-R Int : 207 ms QRS Dur : 145 ms QT Int : 387 ms P-R-T Axes : 071 010 -01 degrees QTc Int : 441 ms Sinus rhythm Right bundle branch block Confirmed by Major Freedman ([id number]) on 10/22/2018 2:59:44 PM Referred By: Isatu Chacko Confirmed By:Major Freedman
--- NOTE | 2018-10-24 08:23 | PQFORM ---
PHYSICIAN QUERY FORM Needs Your Response This query form is being sent to you to assure this patient record is coded properly. Please respond to the question below: [employer] SUPERVISOR QUESTION: Dr Hui Chart documentation mentions Opiod Dependency for Chronic Pain but this is not reflected on the Discharge Summary. Does this patient have Opiod Dependency? ___ Yes ___ No ___ Other (Please Specify ____) ___ Unable to determine Thank You Sophie MANN [place] INSTRUCTIONS FOR RESPONSE: Answer question by clicking on the "Edit Document" button. Move cursor to area below the stars. When complete, hit "Save." Click on the "Sign" button, then click "Sign" again. Type in your PIN and hit "Enter." yes LORRIED
== END 2018-10-21 14:13 | disposition home health service (06) | DRG 644 ==
LOC: EDUNIT# → INTOOBSV 18:21 → F3E 20:10 → OBSVTOIN 10-19 21:03
PROVIDERS: ADMIT Internal Medicine; ATTEND Internal Medicine
DX: E22.2 Syndrome of inappropriate secretion of antidiuretic hormone (principal); R62.7 Adult failure to thrive; E11.9 Type 2 diabetes mellitus without complications; R42 Dizziness and giddiness; R26.81 Unsteadiness on feet; D50.9 Iron deficiency anemia, unspecified; G89.29 Other chronic pain; F11.20 Opioid dependence, uncomplicated; K21.9 Gastro-esophageal reflux disease without esophagitis; I10 Essential (primary) hypertension; Z87.891 Personal history of nicotine dependence; Z86.73 Personal history of transient ischemic attack (TIA), and cerebral infarction without residual deficits; Z87.01 Personal history of pneumonia (recurrent)
CPT/HCPCS: 84484-ER; 97116-GP; 97161-GP; 97165-GO; 97530-GP; 97535-GO; G0378; J0834; J1650; J2916; Q9967